=== PATIENT | female | born 1960 | race Asian ===

== ENCOUNTER → 2020-05-21 13:40 | Outpatient (BNVA) | payer OTHER, SELFPAY | PROVIDERS: PCP Internal Medicine; Referring Provider Internal Medicine; Visit Provider Nurse Practitioner Family | DX: Z76.89 Persons encountering health services in other specified circumstances (principal) ==

== ENCOUNTER 2020-06-20 07:33 | Outpatient (REF) | payer OTHER, SELFPAY ==
--- NOTE | 2020-06-20 07:37 | MM_ITS ---
EXAMINATION: MM SCREENING DIGITAL BREAST TOMOSYNTHESIS, BILATERAL CLINICAL INFORMATION: Screening. Asymptomatic. Benign right stereotactic biopsy 07/06/2019 (Benign breast parenchyma showing fibrocystic changes and adenosis with associated microcalcifications). The lifetime risk of breast cancer based on the Tyrer-Cuzick Model is 18%. COMPARISON: Mammography: 07/06/2019, 06/26/2019, 06/15/2019, 12/08/2011 TECHNIQUE: Digital breast tomosynthesis is performed in both the craniocaudal and mediolateral oblique views along with computer-aided detection (CAD). Synthesized 2D images are generated from the tomosynthesis. Additional right MLO view is provided. FINDINGS: The breasts are heterogeneously dense, which may obscure small masses (ACR BI-RADS breast composition Category c). There are no significant masses, abnormal calcifications, or other abnormalities. There is biopsy clip marker 12:00 right breast. Bilateral round calcifications are again seen in both breasts similar to prior studies with no interval change. MM/MM tomosynthesis screening BI IMPRESSION: No mammographic evidence of malignancy. ASSESSMENT: BI-RADS 2: Benign RECOMMENDATION: Routine annual mammography screening. This patient's information was entered into a reminder system with a target due date for their next mammogram.
== END 2020-06-20 07:34 | disposition home or self-care (01) ==
LOC: HO.MAMMO 07:33
PROVIDERS: PCP Internal Medicine; Visit Provider Internal Medicine
DX: Z12.31 Encounter for screening mammogram for malignant neoplasm of breast (principal)
CPT/HCPCS: 77063; 77067

== ENCOUNTER 2020-11-28 09:32 | Outpatient (REF) | payer OTHER, SELFPAY ==
--- NOTE | ~2020-11-28 | MM_ITS ---
EXAMINATION: BONE DENSITOMETRY CLINICAL INDICATION: Asymptomatic menopausal state. COMPARISON: This is the patient's baseline examination. TECHNIQUE: Using a [employer] DXA System (software version: 13.1) manufactured by [employer], dual-energy x-ray absorptiometry was performed of the lumbar spine and left hip. The images are of good technical quality. Summary results are attached. FINDINGS: AP SPINE L1-L4: BMD 1.301 g/cm2, Z-score 2.4, T-score 1.0, normal. LEFT FEMUR, NECK: BMD 0.801 g/cm2, Z-score -0.4, T-score -1.7, osteopenia. LEFT FEMUR, TOTAL: BMD 0.889 g/cm2, Z-score 0.1, T-score -0.9, normal. IDENTIFIED RISK FACTORS: Menopause. HISTORY OF FRACTURE: None listed. MEDICATIONS: Vitamin D. MM/XR DEXA axial skeleton IMPRESSION: 1. DIAGNOSIS: Osteopenia based on the lowest T-score value of -1.7 in the femoral neck applying World Health Organization criteria. 2. 10-YEAR FRACTURE RISK PREDICTION, FRAX: Major osteoporotic fracture (clinical spine, forearm, hip or shoulder) 4.9%. Hip fracture 0.5%. 3. Treatment Recommendations: NOF guidelines recommend consideration for treatment in postmenopausal women and men age 50 and older presenting with the following: -A hip or vertebral (clinical or morphometric) fracture. -T-score less than or equal to -2.5 at the femoral neck or spine after appropriate evaluation to exclude secondary causes. -Low bone mass at the hip or spine and a 10-year fracture probability by FRAX of greater than or equal to 3% for hip fracture or greater than or equal to 20% for major osteoporotic fracture based on the [place] adapted WHO algorithm. 4. Other Recommendations: All treatment decisions require clinical judgment and consideration of individual patient factors, including patient preferences, comorbidities, previous drug use, risk factors not captured in the FRAX model (e.g. frailty, falls, vitamin D deficiency, increased bone turnover, interval significant decline in bone density) and possible under or overestimation of fracture risk by FRAX. Additional medical evaluation for secondary cause of low bone mineral density may be appropriate. FUTURE SCAN RECOMMENDATION: People with diagnosed cases of osteoporosis or at high risk for fracture should have regular bone mineral density tests. For patients eligible for Medicare, routine testing is allowed once every 2 years. The testing frequency can be increased to one year for patients who have rapidly progressing disease, those who are receiving or discontinuing medical therapy to restore bone mass, or have additional risk factors.
== END 2020-11-28 09:33 | disposition home or self-care (01) ==
LOC: HO.MAMMO 09:32
PROVIDERS: PCP Internal Medicine; Visit Provider Internal Medicine
DX: Z13.820 Encounter for screening for osteoporosis (principal); Z78.0 Asymptomatic menopausal state
CPT/HCPCS: 77080

== ENCOUNTER 2020-12-15 17:20 | Outpatient (REF) | payer OTHER, SELFPAY ==
[2020-12-17 08:11] LABS: FIT Int Ctl YES; FIT1 NEGATIVE (NEGATIVE); FIT2 NEGATIVE (NEGATIVE)
== END 2020-12-15 17:21 | disposition home or self-care (01) ==
LOC: HO.LNP 17:20
PROVIDERS: Visit Provider Internal Medicine
DX: Z12.11 Encounter for screening for malignant neoplasm of colon (principal)
CPT/HCPCS: 82274

== ENCOUNTER 2020-12-16 17:17 | Outpatient (REF) | payer OTHER, SELFPAY | END 2020-12-16 17:18 | disposition home or self-care (01) | LOC: HO.LNP 17:17 | PROVIDERS: Visit Provider Internal Medicine | DX: Z13.89 Encounter for screening for other disorder (principal) ==

== ENCOUNTER 2021-02-07 10:35 | Outpatient (REF) | payer OTHER, SELFPAY ==
--- NOTE | ~2021-02-07 | XR_ITS ---
EXAMINATION: XR KNEE AP STANDING AND LATERAL WEIGHTBEARING VIEWS OF BOTH KNEES CLINICAL INFORMATION: Knee pain. COMPARISON: None TECHNIQUE: AP and lateral weightbearing views of both knees. FINDINGS: RIGHT KNEE: There is no evidence of acute fracture or dislocation of the right knee. No right knee effusion. Minimal spurring in the patellofemoral joint is present. There is osteopenia. LEFT KNEE: No acute fracture or dislocation is evident. No effusion is seen. Mild spurring superior aspect of the patellofemoral joint is seen. The joint spaces appear maintained. Osteopenia is present. The lateral view is not truly lateral giving a flattened appearance to the femoral heads. XR/XR knee standing BI IMPRESSION: Osteopenia without evidence of acute fracture or effusion of the knees.
[2021-02-07 14:32] LABS: Alanine Aminotransferase 16 U/L (0-31); Anion Gap 15 (12-20); Aspartate Amino Transferase 12 U/L (5-31); Blood Urea Nitrogen 11 mg/dL (9-16); Calcium 10.1 mg/dL (8.4-10.2); Carbon Dioxide 24 mmol/L (22-29); Chloride 103 mmol/L (96-108); Cholesterol 219 mg/dL; Estimated Glomerular Filt Rate > 60; Glucose Fasting 99 mg/dL (60-99); HDL Cholesterol 41 mg/dL; LDL Cholesterol Calculated 159 mg/dl; Sodium 138 mmol/L (135-145); Triglycerides 98 mg/dL
[2021-02-07 14:54] LABS: Vitamin D 25-OH Total 60.3 ng/mL (>30)
== END 2021-02-07 10:36 | disposition home or self-care (01) ==
LOC: HO.HMGCX 10:35
PROVIDERS: PCP Internal Medicine; Visit Provider Internal Medicine
DX: M25.561 Pain in right knee (principal); M25.562 Pain in left knee; E66.9 Obesity, unspecified; E78.5 Hyperlipidemia, unspecified; I10 Essential (primary) hypertension; N95.1 Menopausal and female climacteric states
CPT/HCPCS: 36415; 73565; 80048; 80061; 82306; 84450; 84460

== ENCOUNTER 2022-01-05 01:40 | Emergency (ER) | payer OTHER, SELFPAY ==
--- NOTE | ~2022-01-05 | XR_ITS ---
EXAMINATION: XR CHEST CLINICAL INFORMATION: Chest pain COMPARISON: None TECHNIQUE: Frontal view of the chest was obtained. FINDINGS: The lungs are clear with no focal consolidation. No evidence of pneumothorax, pulmonary edema, or pleural effusions. The cardiomediastinal silhouette is unremarkable. No acute osseous findings. XR/XR chest 1V IMPRESSION: No acute cardiopulmonary findings.
[2022-01-05 01:43] VITALS: BP 120/84; PULSE 69; O2SAT 98
[2022-01-05 02:06] VITALS: BP 161/83; PULSE 59; RESP 18; TEMP 37.3; O2SAT 99; BMI 22.6
[2022-01-05 02:09] LABS: MANUAL DIFF FLAG NO
[2022-01-05 02:14] LABS: Basophils Percent Auto 0.2 % (0-2); Eosinophils Percent Auto 0.4 % (0-4); Hematocrit 37.2 % (37.0-47.0); Hemoglobin 12.2 g/dl (12.0-16.0); Imm Gran Abs Auto 0.03 X10*3/uL (0.00-0.03); Imm Gran Pct Auto 0.3 % (0.0-0.4); Lymphocytes Absolute Auto 2.2 X10*3/uL (1.2-4.9); Lymphocytes Percent Auto 24.2 % (20-40); Mean Corpuscular HGB Conc 32.8 g/dl (31.0-35.0); Mean Corpuscular Hemoglobin 30.3 pg (27.0-33.0); Mean Corpuscular Volume 92.5 fL (80.0-98.0); Mean Platelet Volume 9.1 fL (9.4-12.3); Monocytes Absolute Auto 0.3 X10*3/uL (0.1-1.2); Monocytes Percent Auto 3.6 % (2-11); Neutrophils Absolute Auto 6.4 x10*3/uL (2.0-8.3); Neutrophils Percent Auto 71.3 % (45-73); Platelet Count 255 X10*3/uL (160-400); Red Blood Count 4.02 X10*6/uL (4.20-5.50); Red Cell Distribution Width 13.8 % (11.0-16.0)
[2022-01-05 02:31] LABS: Alanine Aminotransferase 15 U/L (0-31); Albumin Level 4.4 g/dL (3.5-5.0); Alkaline Phosphatase 76 U/L (39-117); Anion Gap 12 (12-20); Aspartate Amino Transferase 13 U/L (5-31); Bilirubin Direct 0.2 mg/dL (0.0-0.5); Bilirubin Total 0.4 mg/dL (0.0-1.0); Blood Urea Nitrogen 10 mg/dL (9-16); Calcium 9.3 mg/dL (8.4-10.2); Carbon Dioxide 23 mmol/L (22-29); Chloride 106 mmol/L (96-108); Creatinine Clr Calc Pharmacy 63.1; Estimated Glomerular Filt Rate > 60; Glucose Random 109 mg/dL (60-115); Lipase 15 U/L (8-78); Potassium 3.8 mmol/L (3.3-5.1); Sodium 137 mmol/L (135-145)
[2022-01-05 02:41] LABS: COVID-19 Test Negative (Negative)
[2022-01-05 06:29] LABS: Appearance Urine HAZY; Color Urine YELLOW; Glucose Urine UA NEG (NEG); Leukocyte Esterase Urine 2+ (NEG); Nitrite Urine POS (NEG); Specific Gravity - Urine 1.025 (1.005-1.025); UACC Culture Trigger YES; Urine Blood TRACE (NEG); Urine Ketones 5 MG/DL (NEG); Urine Protein NEG (NEG-TRACE)
[2022-01-05 06:36] LABS: Bacteria Urine 4+ /LPF; Squamous Epithelial Cell Urine 2+ /LPF
[2022-01-05 06:37] LABS: Mucus Urine 1+ /LPF
[2022-01-05 06:55] VITALS: BP 157/72; PULSE 69; RESP 16; TEMP 37.2; O2SAT 99
--- NOTE | 2022-01-05 07:17 | ED_ITS ---
HPI - Abdominal Pain General Chief Complaint: Abdominal Pain Stated Complaint: N/V/Chills,Rt flank pain Time Seen by Provider: 01/05/22 06:09 Source: patient Mode of arrival: ambulatory History of Present Illness HPI narrative: 61-year-old female who presents with right flank pain and urinary frequency with associated nausea and chills but no vomiting or measured temperatures at home. Patient states that she suffers from diarrhea and states that the pain has gone away for now but is very sharp in nature. Related Data Previous Rx's Medication Instructions Recorded lisinopril 10 1 tab PO DAILY #90 tabs 09/04/21 mg-hydrochlorothiazide 12.5 mg tablet ciprofloxacin HCl 500 mg tablet 250 mg PO Q12H 5 days #5 tabs 01/05/22 ondansetron 4 mg disintegrating 4 mg PO Q8H PRN nausea and 01/05/22 tablet vomiting #6 tabs Allergies Allergy/AdvReac Type Severity Reaction Status Date / Time acetaminophen [Tylenol] AdvReac Unknown stomach Verified 01/05/22 02:08 upset NSAIDS (Non-Steroidal AdvReac Unknown nausea and Verified 01/05/22 02:08 Anti-Inflamma vomiting Review of Systems Review of Systems Pertinent positives and negatives as stated in HPI 10 point review of systems is otherwise negative PMFSH Past Medical History Source: nursing notes reviewed Medical History Breast cancer screening by mammogram Difficulty sleeping Dyslipidemia Essential hypertension Glaucoma Obesity Papanicolaou smear declined Post menopausal syndrome Surgical History History of knee surgery History of root canal procedure Family History Family History Father Unknown family medical history Mother No problems noted. Social History Social History Alcohol intake: never Substance Use Type: Marijuana Advance Directives: No Advance Directives Information Provided: Yes Physical Exam ED Vital Signs: Vital Signs - 24 hr 01/05/22 02:06 01/05/22 06:55 Temperature 99.1 F 99.0 F Pulse Rate 59 69 Respiratory Rate 18 16 Blood Pressure 161/83 H 157/72 H Pulse Oximetry 99 99 Oxygen Delivery Method Room Air Room Air BMI result Body Mass Index 22.6 VITAL SIGNS: Reviewed. GENERAL: Well developed, well nourished, in no acute distress. HEAD: Normocephalic/atraumatic EYES: PERRLA, EOMI EARS: Ext canals without abnormality OROPHARYNX: no oral lesions noted, posterior pharynx clear LUNGS: Normal breath sounds. No adventitious sounds or accessory muscle use. SpO2<99> CARDIOVASCULAR: Regular rate and rhythm without noted murmurs ABDOMEN: Soft, no right upper quadrant / epigastric pain, non-distended with bowel sounds, right CVA tenderness. NEUROLOGIC: Alert and oriented x 4. Strength and sensation to light touch were grossly intact x 4. Course Course Course Narrative: 61-year-old female with history and clinical presentation after review of all investigations most consistent with clinical diagnosis of pyelonephritis. Patient will receive initial antibiotics as well as antiemetic here in the emergency room and then be discharged with remaining course. All results and plan have been discussed with her at bedside. MDM - Abdominal Pain Lab Data Result diagrams: 01/05/22 02:01 01/05/22 02:01 Labs: Lab Results 01/05/22 01/05/22 01/05/22 Range/Units 02:01 02:01 02:01 WBC 9.0 (4.8-10.8) X10*3/uL RBC 4.02 L (4.20-5.50) X10*6/uL Hgb 12.2 (12.0-16.0) g/dl Hct 37.2 (37.0-47.0) % MCV 92.5 (80.0-98.0) fL MCH 30.3 (27.0-33.0) pg MCHC 32.8 (31.0-35.0) g/dl RDW 13.8 (11.0-16.0) % Plt Count 255 (160-400) X10*3/uL MPV 9.1 L (9.4-12.3) fL Immature Gran % (Auto) 0.3 (0.0-0.4) % Neut % (Auto) 71.3 (45-73) % Lymph % (Auto) 24.2 (20-40) % [place] % (Auto) 3.6 (2-11) % Eos % (Auto) 0.4 (0-4) % Baso % (Auto) 0.2 (0-2) % Lymph # (Auto) 2.2 (1.2-4.9) X10*3/uL [place] # (Auto) 0.3 (0.1-1.2) X10*3/uL Eos # (Auto) 0.0 (0.0-0.4) X10*3/uL Baso # (Auto) 0.0 (0.0-0.2) X10*3/uL Abs Immat Gran (auto) 0.03 (0.00-0.03) X10*3/uL Absolute Neuts (auto) 6.4 (2.0-8.3) x10*3/uL Absolute Nucleated RBC 0.000 (0.0-0.012) X10*3/uL Nucleated RBC % (auto) 0.0 (0.0-0.2) /100WBC Sodium 137 (135-145) mmol/L Potassium 3.8 (3.3-5.1) mmol/L Chloride 106 (96-108) mmol/L Carbon Dioxide 23 (22-29) mmol/L Anion Gap 12 (12-20) BUN 10 (9-16) mg/dL Creatinine 0.63 (0.5-1.4) mg/dL Estim Creat Clear Calc 63.1 Estimated GFR > 60 Random Glucose 109 (60-115) mg/dL Calcium 9.3 D (8.4-10.2) mg/dL Total Bilirubin 0.4 (0.0-1.0) mg/dL Direct Bilirubin 0.2 (0.0-0.5) mg/dL AST 13 (5-31) U/L ALT 15 (0-31) U/L Alkaline Phosphatase 76 (39-117) U/L Total Protein 8.0 (6.5-8.0) g/dL Albumin 4.4 (3.5-5.0) g/dL Lipase 15 (8-78) U/L Urine Color Urine Appearance Urine pH (5.0-8.0) Ur Specific [place] (1.005-1.025) Urine Protein (NEG-TRACE) MG/DL Urine Glucose (UA) (NEG) MG/DL Urine Ketones (NEG) MG/DL Urine Blood (NEG) Urine Nitrite (NEG) Ur Leukocyte Esterase (NEG) Urine RBC (0) /HPF Urine WBC (0-4) /HPF Ur Squamous Epith Cells /LPF Urine Bacteria /LPF Urine Mucus /LPF COVID-19 (CARL) Negative (Negative) COVID-19 Clin Com See Note 01/05/22 Range/Units 06:05 WBC (4.8-10.8) X10*3/uL RBC (4.20-5.50) X10*6/uL Hgb (12.0-16.0) g/dl Hct (37.0-47.0) % MCV (80.0-98.0) fL MCH (27.0-33.0) pg MCHC (31.0-35.0) g/dl RDW (11.0-16.0) % Plt Count (160-400) X10*3/uL MPV (9.4-12.3) fL Immature Gran % (Auto) (0.0-0.4) % Neut % (Auto) (45-73) % Lymph % (Auto) (20-40) % [place] % (Auto) (2-11) % Eos % (Auto) (0-4) % Baso % (Auto) (0-2) % Lymph # (Auto) (1.2-4.9) X10*3/uL [place] # (Auto) (0.1-1.2) X10*3/uL Eos # (Auto) (0.0-0.4) X10*3/uL Baso # (Auto) (0.0-0.2) X10*3/uL Abs Immat Gran (auto) (0.00-0.03) X10*3/uL Absolute Neuts (auto) (2.0-8.3) x10*3/uL Absolute Nucleated RBC (0.0-0.012) X10*3/uL Nucleated RBC % (auto) (0.0-0.2) /100WBC Sodium (135-145) mmol/L Potassium (3.3-5.1) mmol/L Chloride (96-108) mmol/L Carbon Dioxide (22-29) mmol/L Anion Gap (12-20) BUN (9-16) mg/dL Creatinine (0.5-1.4) mg/dL Estim Creat Clear Calc Estimated GFR Random Glucose (60-115) mg/dL Calcium (8.4-10.2) mg/dL Total Bilirubin (0.0-1.0) mg/dL Direct Bilirubin (0.0-0.5) mg/dL AST (5-31) U/L ALT (0-31) U/L Alkaline Phosphatase (39-117) U/L Total Protein (6.5-8.0) g/dL Albumin (3.5-5.0) g/dL Lipase (8-78) U/L Urine Color YELLOW Urine Appearance HAZY Urine pH 6.0 (5.0-8.0) Ur Specific [place] 1.025 (1.005-1.025) Urine Protein NEG (NEG-TRACE) MG/DL Urine Glucose (UA) NEG (NEG) MG/DL Urine Ketones 5 (NEG) MG/DL Urine Blood TRACE (NEG) Urine Nitrite POS H (NEG) Ur Leukocyte Esterase 2+ H (NEG) Urine RBC 1-4 (0) /HPF Urine WBC 15-29 H (0-4) /HPF Ur Squamous Epith Cells 2+ /LPF Urine Bacteria 4+ /LPF Urine Mucus 1+ /LPF COVID-19 (CARL) (Negative) COVID-19 Clin Com Discharge Plan Discharge Clinical Impression: Pyelonephritis Patient Disposition: Home, Self-Care Instructions: Kidney Infection (ED) Additional Instructions: 1. Drink plenty of water. 2. Complete the entire course of antibiotics. Return to the ER for worsening symptoms. Prescriptions: New ciprofloxacin HCl 500 mg tablet 250 mg PO Q12H 5 Days Qty: 5 0RF ondansetron 4 mg tablet,disintegrating 4 mg PO Q8H PRN (Reason: nausea and vomiting) Qty: 6 0RF No Action lisinopril-hydrochlorothiazide 10-12.5 mg tablet 1 tab PO DAILY Qty: 90 0RF Rx Instructions: call for PCP appt for more refills
[2022-01-05] MEDS: Ondansetron ODT 4 MG TAB.RAPDIS TRANSLINGU (08:42)
[2022-01-05] MEDS: levoFLOXacin 750 MG TABLET PO (08:42)
== END 2022-01-05 09:00 | disposition home or self-care (01) ==
PROVIDERS: Emergency Provider Student in an Organized Health Care Education/Training Program
DX: N10 Acute pyelonephritis (principal); R35.0 Frequency of micturition; R07.89 Other chest pain; Z20.822 Contact with and (suspected) exposure to COVID-19; Z79.899 Other long term (current) drug therapy
CPT/HCPCS: 36415; 71045; 80048; 80076; 81001; 83690; 85025; 87086; 87635; 99283; 99284

== ENCOUNTER 2022-02-17 07:27 | Outpatient (REF) | payer OTHER, SELFPAY ==
[2022-02-17 12:16] LABS: Anion Gap 12 (12-20); Blood Urea Nitrogen 14 mg/dL (9-16); Calcium 9.5 mg/dL (8.4-10.2); Carbon Dioxide 25 mmol/L (22-29); Chloride 105 mmol/L (96-108); Cholesterol 178 mg/dL; Estimated Glomerular Filt Rate > 60; Glucose Fasting 91 mg/dL (60-99); HDL Cholesterol 56 mg/dL; LDL Cholesterol Calculated 109 mg/dl; Potassium 4.2 mmol/L (3.3-5.1); Sodium 138 mmol/L (135-145); Triglycerides 66 mg/dL
[2022-02-17 12:26] LABS: Vitamin D 25-OH Total 36.8 ng/mL (>30)
[2022-02-17 12:44] LABS: Folate 9.2 ng/mL (> or = 4.0); Vitamin B12 304 pg/mL (200-900)
== END 2022-02-17 07:28 | disposition home or self-care (01) ==
LOC: HO.HMGCLDS 07:27
PROVIDERS: PCP Internal Medicine; Visit Provider Internal Medicine
DX: E66.9 Obesity, unspecified (principal); E78.5 Hyperlipidemia, unspecified; N95.1 Menopausal and female climacteric states; I10 Essential (primary) hypertension
CPT/HCPCS: 36415; 80048; 80061; 82306; 82607; 82746; 84443

== ENCOUNTER 2023-04-07 12:59 | Outpatient (AMB) | payer OTHER, SELFPAY ==
[2023-04-07 13:33] VITALS: BP 160/100; PULSE 73; O2SAT 99; BMI 27.6
--- NOTE | 2023-04-07 13:33 | A.OFFPC_ITS ---
Vital Signs 04/07/23 13:33 04/07/23 13:40 Height 4 ft 11 in Weight 136 lb 8 oz BMI 27.6 BP 160/100 H 140/85 H Blood Pressure Location Lt brachial Lt brachial Position Sitting Sitting Pulse 73 Pulse Source Pulse Oximeter Pulse Oximetry (%) 99 Oxygen Delivery Method Room Air Intake Visit Reasons: Follow-up hypertension Intake Note: pt is following up for HTN pt wants flu vaccine Allergies acetaminophen [Tylenol] Adverse Reaction (Unknown, Verified 04/07/23 13:53) stomach upset NSAIDS (Non-Steroidal Anti-Inflamma Adverse Reaction (Unknown, Verified 04/07/23 14:00) nausea and vomiting Medication List - Last Reconciled 04/07/23 by Dianne Vang MD amlodipine 5 mg PO DAILY Tobacco use date assessed: 04/07/23 Fall risk assessment: No Falls in past year Last assessed Fall Risk: 04/07/23 Dental Screening Dental Screen Date: 04/07/23 Did you have a dental visit in the last 12 months?: No Did you have a dental problem in the last 6 months where you did not have access to dental care?: No Was dental information given to patient?: No HPI HPI Comments History of Present Illness Details 63-year-old lady with hypertension, here today for follow-up. She takes amlodipine 5 mg once a day in a.m., already took her dose this morning prior to coming to the office. Blood pressure today is elevated at 1 60/100. Patient denies any headache, no shortness of breath, no lightheadedness, no chest pain reported. [facility], LAT[facility] Medical History Heartburn Breast cancer screening by mammogram Difficulty sleeping Papanicolaou smear declined Obesity Post menopausal syndrome Essential hypertension Glaucoma Dyslipidemia Surgical History History of knee surgery History of root canal procedure Family History Father Unknown family medical history Mother No problems noted. Social History Housing: Condominium Alcohol intake: never Patient Tobacco Use Status: Never used Tobacco e-Cigarette/Vaping Use: Never Used Second Hand Smoke Exposure: No Substance Use Type: Marijuana service: No Current occupational status: retired Cognitive needs: No Hearing needs: No Vision needs: No Questionnaire PHQ-9 Over the last 2 weeks, how often have you been bothered by any of the following problems? Depression Screening Interpretation: Negative Depression Screening Done: Yes Source: Developed by Moon Melendez Kurt Kroenke and colleagues, with an educational bibiana from [employer]. Thrive Questionnaire Date Thrive assessed: 02/13/22 AVELINA-7 AMB Questionnaire AVELINA-7 Date AVELINA - 7 assessed: 02/13/22 Source: Developed by Drs. Sammy Mckeon, Moon Machado, Mario Ramon and colleagues, with an educational bibiana from Rep. Review of Systems Const Reports as per HPI and Denies headache(s) Eyes Reports no additional complaints ENT Reports no additional complaints, Denies dizziness and Denies headache(s) Card Denies dyspnea Resp Denies cough and Denies dyspnea GI Denies abdominal pain, Denies melena, Denies bloating, Denies change in bowel habits and Denies heartburn Musc Reports no additional complaints Neuro Denies dizziness, Denies headache(s), Denies lack of coordination, Denies focal weakness and Denies Sensory deficit (Neuro) Physical exam (Primary Care) Vital Signs: Last Vital Signs Pulse 73 04/07/23 13:33 BP 140/85 H 04/07/23 13:40 Pulse Ox 99 04/07/23 13:33 Oxygen Delivery Method Room Air 04/07/23 13:33 BMI result Body Mass Index 27.6 Tobacco/Smoking Status: Tobacco use Status Tobacco use date assessed 04/07/23 04/07/23 13:41 Patient Tobacco Use Status Never used Tobacco 04/07/23 14:11 e-Cigarette/Vaping Use Never Used 04/07/23 14:03 Depression Screening Interpretation: Negative Thrive Assessment: Date of Thrive Assessment Date Thrive assessed 02/13/22 04/07/23 13:34 Const Other: Alert oriented x3, no acute distress noted ambulatory normal gait General: comfortable, no acute distress, alert, awake and Physically active Nutritional Appearance: obese Orientation/consciousness: patient oriented x3 HENMT Head: Yes normocephalic Ears: external ears normal, TM's normal bilaterally and EAC's normal General nose exam: Normal external nose present and No nasal discharge present Face and sinus: Yes sinuses nontender and Yes face symmetric Mouth: Normal oral and palatal mucosa present, oropharynx normal and moist mucous membranes Neck Other: Supple no lymphadenopathy, thyroid gland nonpalpable Neck: Yes full ROM, Yes no lymphadenopathy and Yes supple Resp Effort & Inspection: normal respiratory effort and able to speak in complete sentences Auscultation: clear to auscultation bilaterally Cardio Other: S1-S2 present regular rate and rhythm Rate: regular rate Rhythm: regular rhythm Heart sounds: S1 normal heart sound present and S2 normal heart sound present GI Other: Obese, soft, nontender, no mass palpated Auscultation: normal bowel sounds Amniotic Fluid: fluid present Neuro General: patient oriented x3, gait normal, moves all extremities, no focal motor deficits and CN's II-XI intact bilaterally Sensory Exam: No Sensory deficit (Neuro) Extrem General: Yes full ROM, Yes no joint enlargement, Yes no pedal edema and Yes normal gait Office Procedures Flu Questionnaire Does the patient have a severe egg allergy?: No Does the patient have severe life threatening allergies?: No Does the patient have a fever or illness today?: No Has the patient ever had Guillain-Shiloh Syndrome?: No Has the patient ever had any past reaction to a flu shot?: No Immunizations flu vacc [id number] 6mos up(PF) 60 mcg(15 mcgx4)/0.5 mL IM syringe Performing Provider: Dianne Vang MD Performing Location: [facility] Administered by: Jami Messina CMA on 04/07/23 14:17 Dose Route Admin Location Dispensed Lot Number Expiration Date NDC Manager [employer] 0.5 mL IM Left Deltoid 0.5 mL [id number] 12/19/23 91710-950-81 [employer] VIS Given Date VIS Provided VIS Publication Date 04/07/23 Single Vaccine 21 Eligibility Eligibility Date Funding Source Not [facility] Eligible 04/07/23 Private Assessment and Plan Assessment & Plan (1) Essential hypertension: Code(s): I10 - Essential (primary) hypertension Plan: Blood pressure not at goal of less than 130/80. Increased amlodipine to 10 mg daily, continue with following a low-cholesterol diet and getting regular exercise. Will schedule appointment for him to be seen and for blood pressure check with the nurse navigator next week and for guidance with regards her diet. Orders: Orders Influenza [id number] Immunization 04/07/23 Z23 - Encounter for immunization Coding Level of Care Code Est Pt Level 3 (38675) Diagnoses Essential hypertension I10
[2023-04-07 13:40] VITALS: BP 140/85
== END 2023-04-07 14:30 | disposition home or self-care (01) ==
PROVIDERS: PCP Internal Medicine; Visit Provider Internal Medicine
DX: Z23 Encounter for immunization (principal)
CPT/HCPCS: 90471; 90686; 99213

== ENCOUNTER 2023-06-11 11:38 | Outpatient (REF) | payer OTHER, SELFPAY ==
[2023-06-11 13:22] LABS: MANUAL DIFF FLAG NO
[2023-06-11 13:33] LABS: Basophils Percent Auto 0.5 % (0-2); Eosinophils Absolute Auto 0.1 X10*3/uL (0.0-0.4); Eosinophils Percent Auto 0.7 % (0-4); Hematocrit 41.4 % (37.0-47.0); Hemoglobin 13.5 g/dl (12.0-16.0); Imm Gran Abs Auto 0.03 X10*3/uL (0.00-0.03); Imm Gran Pct Auto 0.4 % (0.0-0.4); Lymphocytes Absolute Auto 3.1 X10*3/uL (1.2-4.9); Mean Corpuscular HGB Conc 32.6 g/dl (31.0-35.0); Mean Corpuscular Hemoglobin 30.1 pg (27.0-33.0); Mean Corpuscular Volume 92.2 fL (80.0-98.0); Mean Platelet Volume 9.6 fL (9.4-12.3); Monocytes Absolute Auto 0.4 X10*3/uL (0.1-1.2); Monocytes Percent Auto 5.4 % (2-11); Neutrophils Absolute Auto 3.9 x10*3/uL (2.0-8.3); Platelet Count 326 X10*3/uL (160-400); Red Blood Count 4.49 X10*6/uL (4.20-5.50); Red Cell Distribution Width 13.3 % (11.0-16.0); White Blood Count 7.4 X10*3/uL (4.8-10.8)
[2023-06-11 14:20] LABS: Alanine Aminotransferase 14 U/L (0-31); Anion Gap 15 (12-20); Aspartate Amino Transferase 14 U/L (5-31); Blood Urea Nitrogen 15 mg/dL (9-16); Calcium 9.8 mg/dL (8.4-10.2); Carbon Dioxide 22 mmol/L (22-29); Chloride 103 mmol/L (96-108); Cholesterol 194 mg/dL (<200); Estimated Glomerular Filt Rate > 60; Glucose Fasting 101 mg/dL (60-99); HDL Cholesterol 48 mg/dL (>40); LDL Cholesterol Calculated 129 mg/dL (<100); Potassium 3.6 mmol/L (3.3-5.1); Sodium 136 mmol/L (135-145); Triglycerides 88 mg/dL (<150)
[2023-06-11 14:38] LABS: Vitamin D 25-OH Total 32.6 ng/mL (>30)
== END 2023-06-11 11:39 | disposition home or self-care (01) ==
LOC: HO.HMGCLDS 11:38
PROVIDERS: PCP Internal Medicine; Visit Provider Internal Medicine
DX: N95.1 Menopausal and female climacteric states (principal); I10 Essential (primary) hypertension; E66.9 Obesity, unspecified
CPT/HCPCS: 36415; 80048; 80061; 82306; 84450; 84460; 85025

== ENCOUNTER 2023-11-01 12:08 | Outpatient (AMB) | payer OTHER, SELFPAY ==
[2023-11-01 12:37] VITALS: BP 118/66; PULSE 74; O2SAT 99; BMI 26.5
--- NOTE | 2023-11-01 12:37 | MHC.PC.OV ---
Vital Signs 11/01/23 12:37 Height 4 ft 11 in Weight 131 lb BMI 26.5 BP 118/66 Blood Pressure Location Lt brachial Position Sitting Pulse 74 Pulse Source Pulse Oximeter Pulse Oximetry (%) 99 Oxygen Delivery Method Room Air Intake Visit Reasons: Annual PE Intake Note: Pt is here today for PE. Pt states that she has not seen her [employer]ING [employer]OB [employer] for several years. Allergies acetaminophen [Tylenol] Adverse Reaction (Unknown, Verified 11/01/23 12:50) stomach upset NSAIDS (Non-Steroidal Anti-Inflamma Adverse Reaction (Unknown, Verified 11/01/23 12:50) nausea and vomiting Medication List - Last Reconciled 11/01/23 by Dianne Vang MD amlodipine 10 mg PO DAILY lisinopril-hydrochlorothiazide 10-12.5 mg 1 tab PO DAILY Tobacco use date assessed: 11/01/23 Fall risk assessment: No Falls in past year Last assessed Fall Risk: 11/01/23 Dental Screening Dental Screen Date: 11/01/23 Did you have a dental visit in the last 12 months?: Yes Did you have a dental problem in the last 6 months where you did not have access to dental care?: No Was dental information given to patient?: Patient has dentist HPI Annual PE HPI Details 63-year-old lady with hypertension, currently stable and controlled on amlodipine and lisinopril-HCTZ, here today for physical exam. She is overdue for her screening mammogram, bone density and cervical cancer screening. Last bone density scan done in 2019 showed presence of beginning osteopenia in her left femoral neck Has never had a colon cancer screening done. Has had COVID vaccines, but has not yet had the latest booster, up-to-date with her flu shot, in due for a Tdap and shingles vaccine, but does not want to get the vaccine [facility] Medical History (Updated 11/01/23 @ 13:17 by Dianne Vang MD) Osteopenia of left femoral neck Heartburn Breast cancer screening by mammogram Difficulty sleeping Obesity Post menopausal syndrome Essential hypertension Glaucoma Dyslipidemia Surgical History History of knee surgery History of root canal procedure Family History Father Unknown family medical history Mother No problems noted. Social History Housing: Condominium Alcohol intake: never Patient Tobacco Use Status: Never used Tobacco e-Cigarette/Vaping Use: Never Used Second Hand Smoke Exposure: No Substance Use Type: Marijuana service: No Current occupational status: retired Cognitive needs: No Hearing needs: No Vision needs: No Questionnaire PHQ-9 Over the last 2 weeks, how often have you been bothered by any of the following problems? 1. Little interest or pleasure in doing things: not at all 2. Feeling down, depressed, or hopeless: not at all 3. Trouble falling or staying asleep, or sleeping too much: not at all 4. Feeling tired or having little energy: not at all 5. Poor appetite or overeating: not at all 6. Feeling bad about yourself - or that you are a failure or have let yourself or your family down: not at all 7. Trouble concentrating on things, such as reading the newspaper or watching television: several days 8. Moving or speaking so slowly that other people could have noticed. Or the opposite - being so fidgety or restless that you have been moving around a lot more than usual: not at all 9. Thoughts that you would be better off or of hurting yourself in some way: not at all Total score: 1 Depression Screening Interpretation: Negative Depression Screening Done: Yes 56720 - PHQ-9 Billing: Yes Source: Developed by Drs. Sammy Mckeon, Moon Machado, Mario Ramon and colleagues, with an educational bibiana from [employer]. Thrive Questionnaire Date Thrive assessed: 11/01/23 I am a: Patient What is your living situation today?: I have a steady place to live Within the past 12 months, did the food you bought not last and you didn't have the money to get more?: Never true Within the past 12 months, did you worry whether your food would run out before you got money to buy more?: Never true Do you have trouble paying for medicines?: No Do you have trouble getting transportation to medical appointments?: No Do you have trouble paying your heating and electricity bill?: No Do you have trouble taking care of your child, family member or friend?: No Do you have trouble with day-to-day activities such as bathing, preparing meals, shopping, managing finances, etc.?: No Are you currently unemployed and looking for a job?: Yes Are you interested in more education?: Yes Please select the resources that you would like help with: Job search/training and Education THRIVE Score: 0 AUDIT C Alcohol Use Questionnaire (AUDIT-C) 1. How often do you have a drink containing alcohol?: Never 3. How often do you have six or more drinks on one occasion?: Never Total Score: 0 AVELINA-7 AMB Questionnaire AVELINA-7 Date AVELINA - 7 assessed: 11/01/23 Feeling nervous, anxious, or on edge: 0 = Not at all Not being able to stop or control worryin = Not at all Worrying too much about different things: 0 = Not at all Trouble relaxin = Several days Being so restless that it is hard to sit still: 0 = Not at all Becoming easily annoyed or irritable: 1 = Several days Feeling afraid as if something awful might happen: 0 = Not at all Total AVELINA-7 score (0-4 normal; 5-9 mild; 10-14 moderate; 15-21 severe): 2 Source: Developed by Drs. Sammy Mckeon, Moon Machado, Mario Ramon and colleagues, with an educational bibiana from [employer]. AVELINA-7 Assessment Billing AVELINA-7 Assessment Tool: AVELINA-7 Assessment 43624 Review of Systems Const Denies body aches, Denies fatigue and Denies malaise Eyes Reports requires corrective lenses (For reading) ENT Reports no additional complaints Card Denies chest pain, Denies irregular heart rhythm, Denies lightheadedness and Denies dyspnea Resp Denies cough and Denies dyspnea GI Denies abdominal pain, Denies melena, Denies bloating, Denies change in bowel habits and Denies heartburn Reports no additional complaints Musc Reports no additional complaints Skin/Breast Denies lesions and Denies rash Neuro Denies Sensory deficit (Neuro) Psych Reports no additional complaints Endo Denies fatigue Harsha/Lymph Reports no additional complaints Aller/Immun Reports no additional complaints Physical exam (Primary Care) Vital Signs: Last Vital Signs Pulse 74 11/01/23 12:37 BP 118/66 11/01/23 12:37 Pulse Ox 99 11/01/23 12:37 Oxygen Delivery Method Room Air 11/01/23 12:37 BMI result Body Mass Index 26.5 Tobacco/Smoking Status: Tobacco use Status Tobacco use date assessed 11/01/23 11/01/23 12:42 Patient Tobacco Use Status Never used Tobacco 11/01/23 12:42 e-Cigarette/Vaping Use Never Used 11/01/23 12:42 PHQ-9: PHQ-9 Score PHQ-9: Total score 6 11/01/23 12:46 Depression Screening Interpretation: Negative Thrive Assessment: Date of Thrive Assessment Date Thrive assessed 11/01/23 11/01/23 12:46 Advance Care Planning discussion: Completed/Scanned Date of discussion: 11/01/23 Who was present: Patient Forms completed: Health Care Proxy Time spent: 16-45 minutes Actual minutes spent: 16 Const Other: Alert oriented x3, no acute distress noted ambulatory normal gait Nutritional Appearance: overweight HENMT Head: Yes normocephalic Ears: external ears normal, TM's normal bilaterally and EAC's normal General nose exam: Normal external nose present Face and sinus: Yes face symmetric Mouth: Normal oral and palatal mucosa present, oropharynx normal and moist mucous membranes Eyes General: appearance normal, both eyes and all related structures Neck Other: Supple no lymphadenopathy, thyroid gland nonpalpable Chest Chest palpation & inspection: normal inspection of the chest and normal palpation of entire chest wall Breast/axilla inspection: normal inspection of the breasts Breast/axilla palpation: normal palpation of the breasts Resp Effort & Inspection: normal respiratory effort and able to speak in complete sentences Auscultation: clear to auscultation bilaterally Cardio Rate: regular rate Rhythm: regular rhythm Heart sounds: S1 normal heart sound present and S2 normal heart sound present GI Other: Obese, soft, nontender, no mass palpated Auscultation: normal bowel sounds General: Yes no CVA tenderness Back/Spine/Pelvis Back: no CVA tenderness and No back tenderness Skin General skin exam: no rashes or lesions noted Neuro General: gait normal, moves all extremities, no focal motor deficits and CN's II-XI intact bilaterally Sensory Exam: No Sensory deficit (Neuro) Extrem General: Yes full ROM, Yes no joint enlargement and Yes normal gait Psych Appearance: grossly normal and well kempt Mental Status: mental status grossly normal Speech and movement: Normal speech and movement present Affect: normal affect Attitude: cooperative Thought process: Normal thought process present Thought content: Normal thought content present Assessment and Plan Assessment & Plan (1) Annual visit for general adult medical examination with abnormal findings: Code(s): Z00.01 - Encounter for general adult medical examination with abnormal findings Plan: Will check appropriate labs. Recommended dental visit every 6 months and regular eye exams, at least every 2 years. Take adequate calcium in diet and vitamin-D 3 at 2000 IU per cap once a day, in addition to weight-bearing exercises to help maintain good muscle tone and weight control. Instructed to do self-breast exam, and schedule her for yearly mammogram, and bone density screening. Does not want to get any vaccines. Declined colonoscopy but willing to do Cologuard testing, ordered (2) Breast cancer screening by mammogram: Code(s): Z12.31 - Encounter for screening mammogram for malignant neoplasm of breast Plan: Referred for screening mammogram (3) Essential hypertension: Code(s): I10 - Essential (primary) hypertension Plan: Blood pressure at goal of less than 130/80. Continue with amlodipine 10 mg daily and lisinopril HCTZ 10-12.5 mg daily.. Reinforced importance of following a low sodium diet, getting regular exercise, and lowering stress levels. (4) Screening for malignant neoplasm of cervix: Code(s): Z12.4 - Encounter for screening for malignant neoplasm of cervix Plan: Referred to [facility] for her routine Pap and pelvic exam. (5) Osteopenia of left femoral neck: Code(s): M85.852 - Other specified disorders of bone density and structure, left thigh Plan: , ordered a repeat bone density scan, reinforced importance of getting regular weight-bearing exercise, take adequate calcium from dietary sources and start taking vitamin-D 3 at least 2000 units daily (6) Glaucoma: Code(s): H40.9 - Unspecified glaucoma Plan: Advised to schedule follow-up appointment with Ophthalmology, check with her insurance which icing maker covered by her plan Orders: Orders MM tomosynthesis screening BI Today M85.852 - Other specified disorders of bone density and structure, left thigh, N95.1 - Menopausal and female climacteric states, Z12.31 - Encounter for screening mammogram for malignant neoplasm of breast Aspartate Amino Transferase Today I10 - Essential (primary) hypertension, Z00.01 - Encounter for general adult medical examination with abnormal findings, Z13.1 - Encounter for screening for diabetes mellitus, Z13.220 - Encounter for screening for lipoid disorders Lipid Panel Today I10 - Essential (primary) hypertension, Z00.01 - Encounter for general adult medical examination with abnormal findings, Z13.1 - Encounter for screening for diabetes mellitus, Z13.220 - Encounter for screening for lipoid disorders XR DEXA axial skeleton Today M85.852 - Other specified disorders of bone density and structure, left thigh, N95.1 - Menopausal and female climacteric states, Z12.31 - Encounter for screening mammogram for malignant neoplasm of breast Alanine Aminotransferase Today I10 - Essential (primary) hypertension, Z00.01 - Encounter for general adult medical examination with abnormal findings, Z13.1 - Encounter for screening for diabetes mellitus, Z13.220 - Encounter for screening for lipoid disorders Basic Metabolic Panel Fasting Today I10 - Essential (primary) hypertension, Z00.01 - Encounter for general adult medical examination with abnormal findings, Z13.1 - Encounter for screening for diabetes mellitus, Z13.220 - Encounter for screening for lipoid disorders Vitamin D 25-OH Total Today I10 - Essential (primary) hypertension, Z00.01 - Encounter for general adult medical examination with abnormal findings, Z13.1 - Encounter for screening for diabetes mellitus, Z13.220 - Encounter for screening for lipoid disorders Referrals Cologuard Test Z12.11 - Encounter for screening for malignant neoplasm of colon, Z12.12 - Encounter for screening for malignant neoplasm of rectum [employer] Referral Z12.4 - Encounter for screening for malignant neoplasm of cervix Coding Level of Care Code Est Pt Prev Care 40-64y(22028) Diagnoses Annual visit for general adult medical examination with abnormal findings Z00.01 Breast cancer screening by mammogram Z12.31 Essential hypertension I10 Screening for malignant neoplasm of cervix Z12.4 Osteopenia of left femoral neck M85.852 Glaucoma H40.9 Additional Codes Vital Signs *Quality* - Advance Care Planning discussion: Completed/Scanned ([id number]) Vital Signs *Quality* - Time spent: 16-45 minutes ([id number]) AVELINA-7 Assessment Billing - AVELINA-7 Assessment Tool: AVELINA-7 Assessment 71054 ([id number])
== END 2023-11-01 14:08 | disposition home or self-care (01) ==
PROVIDERS: PCP Internal Medicine; Visit Provider Internal Medicine
DX: Z00.00 Encounter for general adult medical examination without abnormal findings (principal); I10 Essential (primary) hypertension; Z12.31 Encounter for screening mammogram for malignant neoplasm of breast; M85.852 Other specified disorders of bone density and structure, left thigh; H40.9 Unspecified glaucoma
CPT/HCPCS: 1123F; 99396; 99497

== ENCOUNTER → 2023-11-26 08:00 | Outpatient (BNV) | payer OTHER, SELFPAY | PROVIDERS: PCP Internal Medicine; Visit Provider Radiology Diagnostic Radiology | DX: Z12.31 Encounter for screening mammogram for malignant neoplasm of breast (principal) | CPT/HCPCS: 77063; 77067 ==

== ENCOUNTER 2023-11-26 08:06 | Outpatient (REF) | payer OTHER, SELFPAY ==
--- NOTE | ~2023-11-26 | MM_ITS ---
EXAMINATION: MM SCREENING DIGITAL BREAST TOMOSYNTHESIS, BILATERAL CLINICAL INFORMATION: Screening. Asymptomatic. COMPARISON: Mammography: This study is compared with prior exams dating back to 2019. TECHNIQUE: Digital breast tomosynthesis is performed in both the craniocaudal and mediolateral oblique views along with computer-aided detection (CAD). Synthesized 2D images are generated from the tomosynthesis. FINDINGS: The breasts are heterogeneously dense, which may obscure small masses (ACR BI-RADS breast composition Category c). There are no significant masses, abnormal calcifications, or other abnormalities. There is a biopsy tissue marker in the superior aspect of the right breast. There are unchanged, benign calcifications in the upper outer quadrant of the right breast. MM/MM tomosynthesis screening BI IMPRESSION: No mammographic evidence of malignancy. ASSESSMENT: BI-RADS BI-RADS 2 - Benign Findings RECOMMENDATION: Routine annual mammography screening. 1 year F/U This examination should not preclude the clinical evaluation of a suspicious palpable abnormality. This patient's information was entered into a reminder system with a target due date for their next mammogram.
== END 2023-11-26 08:07 | disposition home or self-care (01) ==
LOC: HO.MAMMO 08:06
PROVIDERS: PCP Internal Medicine; Visit Provider Internal Medicine
DX: Z12.31 Encounter for screening mammogram for malignant neoplasm of breast (principal)
CPT/HCPCS: 77063; 77067

== ENCOUNTER 2023-12-09 09:10 | Outpatient (REF) | payer OTHER, SELFPAY ==
--- NOTE | ~2023-12-09 | MM_ITS ---
EXAMINATION: BONE DENSITOMETRY CLINICAL INDICATION: Other specified disorders of bone density and structure, left thigh. COMPARISON: Baseline BD dated 11/28/2020. TECHNIQUE: Using a [employer] DXA System (software version: 13.1) manufactured by [email or web address], dual-energy x-ray absorptiometry was performed of the lumbar spine and left hip. The images are of good technical quality. Summary results are attached. FINDINGS: LEFT FEMUR, NECK: Current: BMD 0.729 g/cm2, Z-score -0.7, T-score -2.2, osteopenia. Baseline: BMD 0.801 g/cm2. LEFT FEMUR, TOTAL: Current: BMD 0.755 g/cm2, Z-score -0.7, T-score -2.0, osteopenia, 15.1% decrease from baseline (<5% change is not significant). Baseline: BMD 0.889 g/cm2. AP SPINE L1-L4: Current: BMD 1.214 g/cm2, Z-score 2.0, T-score 0.3, normal, 6.7% decrease from baseline (<5% change is not significant). Baseline: BMD 1.301 g/cm2. IDENTIFIED RISK FACTORS: Menopause. HISTORY OF FRACTURE: None listed. MEDICATIONS: None listed. MM/XR DEXA axial skeleton IMPRESSION: 1. DIAGNOSIS: Osteopenia based on the lowest T-score value of -2.2 in the femoral neck applying World Health Organization criteria. 2. 10-YEAR FRACTURE RISK PREDICTION, FRAX: Major osteoporotic fracture (clinical spine, forearm, hip or shoulder) 6.5%. Hip fracture 1.1%. 3. Treatment Recommendations: NOF guidelines recommend consideration for treatment in postmenopausal women and men age 50 and older presenting with the following: -A hip or vertebral (clinical or morphometric) fracture. -T-score less than or equal to -2.5 at the femoral neck or spine after appropriate evaluation to exclude secondary causes. -Low bone mass at the hip or spine and a 10-year fracture probability by FRAX of greater than or equal to 3% for hip fracture or greater than or equal to 20% for major osteoporotic fracture based on the [place] adapted WHO algorithm. 4. Other Recommendations: All treatment decisions require clinical judgment and consideration of individual patient factors, including patient preferences, comorbidities, previous drug use, risk factors not captured in the FRAX model (e.g. frailty, falls, vitamin D deficiency, increased bone turnover, interval significant decline in bone density) and possible under or overestimation of fracture risk by FRAX. Additional medical evaluation for secondary cause of low bone mineral density may be appropriate. FUTURE SCAN RECOMMENDATION: People with diagnosed cases of osteoporosis or at high risk for fracture should have regular bone mineral density tests. For patients eligible for Medicare, routine testing is allowed once every 2 years. The testing frequency can be increased to one year for patients who have rapidly progressing disease, those who are receiving or discontinuing medical therapy to restore bone mass, or have additional risk factors.
== END 2023-12-09 09:11 | disposition home or self-care (01) ==
LOC: HO.MAMMO 09:10
PROVIDERS: PCP Internal Medicine; Visit Provider Internal Medicine
DX: Z13.820 Encounter for screening for osteoporosis (principal); Z78.0 Asymptomatic menopausal state; M85.852 Other specified disorders of bone density and structure, left thigh
CPT/HCPCS: 77080

== ENCOUNTER 2023-12-16 20:26 | Emergency (ER) | payer OTHER, SELFPAY ==
[2023-12-16 20:34] VITALS: BP 135/78; PULSE 73; RESP 16; TEMP 36; O2SAT 98; BMI 21.6
--- NOTE | 2023-12-16 20:34 | ED_ITS ---
HPI - General Adult General Chief complaint: Dental/Oral Stated complaint: jaw pain Related Data Previous Rx's ?Medication ?Instructions ?Recorded amlodipine 10 mg tablet 10 mg PO DAILY #90 tabs 07/21/23 lisinopril 10 1 tab PO DAILY #90 tabs 10/15/23 mg-hydrochlorothiazide 12.5 mg tablet Allergies Allergy/AdvReac Type Severity Reaction Status Date / Time acetaminophen [Tylenol] AdvReac Unknown stomach Verified 12/16/23 20:35 upset NSAIDS (Non-Steroidal AdvReac Unknown nausea and Verified 12/16/23 20:35 Anti-Inflamma vomiting PMFSH Past Medical History Medical History (Updated 12/18/23 @ 09:25 by TAISHA Mojica) Osteopenia of left femoral neck Heartburn Breast cancer screening by mammogram Difficulty sleeping Obesity Post menopausal syndrome Essential hypertension Glaucoma Dyslipidemia Surgical History History of knee surgery History of root canal procedure Family History Family History Father Unknown family medical history Mother No problems noted. Social History Social History Housing: Condominium Alcohol intake: never Patient Tobacco Use Status: Never used Tobacco e-Cigarette/Vaping Use: Never Used Second Hand Smoke Exposure: No Substance Use Type: Marijuana service: No Current occupational status: retired Cognitive needs: No Hearing needs: No Vision needs: No Physical Exam ED Vital Signs: BMI result Body Mass Index 21.6 Course Course Course Narrative: This is an RME: Additional HPI, ROS, PE not included below will be deferred to primary provider. RME assessment and note performed by: Amanda Solorzano PA-C This is a 13-bn[age]-female, with a hx of HTN, who presents to the ER with a complaint of right sided jaw pain x 2 hours ago. No CP/SOB. VSS Plan: Labs, EKG Reevaluation(s) Reevaluation #1: Patient left without completing treatment. Medical Decision Making Lab Data 12/16/23 20:51 12/16/23 20:51 Labs: Lab Results 12/16/23 Range/Units 20:51 WBC 8.4 (4.8-10.8) X10*3/uL RBC 3.92 L (4.20-5.50) X10*6/uL Hgb 12.3 (12.0-16.0) g/dl Hct 35.6 L (37.0-47.0) % MCV 90.8 (80.0-98.0) fL MCH 31.4 (27.0-33.0) pg MCHC 34.6 (31.0-35.0) g/dl RDW 13.5 (11.0-16.0) % Plt Count 276 (160-400) X10*3/uL MPV 8.2 L (9.4-12.3) fL Immature Gran % (Auto) 0.2 (0.0-0.4) % Neut % (Auto) 52.7 (45-73) % Lymph % (Auto) 41.0 H (20-40) % [place] % (Auto) 4.6 (2-11) % Eos % (Auto) 1.1 (0-4) % Baso % (Auto) 0.4 (0-2) % Lymph # (Auto) 3.4 (1.2-4.9) X10*3/uL [place] # (Auto) 0.4 (0.1-1.2) X10*3/uL Eos # (Auto) 0.1 (0.0-0.4) X10*3/uL Baso # (Auto) 0.0 (0.0-0.2) X10*3/uL Abs Immat Gran (auto) 0.02 (0.00-0.03) X10*3/uL Absolute Neuts (auto) 4.4 (2.0-8.3) x10*3/uL Absolute Nucleated RBC 0.000 (0.0-0.012) X10*3/uL Nucleated RBC % (auto) 0.0 (0.0-0.2) /100WBC Sodium 134 L (135-145) mmol/L Potassium 3.8 (3.3-5.1) mmol/L Chloride 102 (96-108) mmol/L Carbon Dioxide 24 (22-29) mmol/L Anion Gap 12 (12-20) BUN 21 H (9-16) mg/dL Creatinine 0.63 (0.5-1.4) mg/dL Estim Creat Clear Calc 81.2 Estimated GFR > 60 Random Glucose 108 (60-115) mg/dL Calcium 9.5 (8.4-10.2) mg/dL Total Bilirubin 0.2 (0.0-1.0) mg/dL Direct Bilirubin < 0.2 (0.0-0.5) mg/dL AST 12 (5-31) U/L ALT 13 (0-31) U/L Alkaline Phosphatase 64 (39-117) U/L Troponin I High Sens < 2.7 (<3.5-17.0) ng/L Total Protein 8.1 H (6.5-8.0) g/dL Albumin 4.4 (3.5-5.0) g/dL Discharge Plan Discharge Clinical Impression: Jaw pain Patient Disposition: Left W/O Completing Treatment Prescriptions: No Action amlodipine 10 mg tablet 10 mg PO DAILY Qty: 90 1RF Rx Instructions: Take at night with supper lisinopril-hydrochlorothiazide 10-12.5 mg tablet 1 tab PO DAILY Qty: 90 0RF Discharge Date/Time: 12/17/23 00:42
--- NOTE | 2023-12-16 20:37 | ECG_ITS ---
Test Reason : JAW PAIN Blood Pressure : / mmHG Vent. Rate : 062 BPM Atrial Rate : 062 BPM P-R Int : 152 ms QRS Dur : 072 ms QT Int : 388 ms P-R-T Axes : 028 057 038 degrees QTc Int : 393 ms Normal sinus rhythm Normal ECG No previous ECGs available Referred By: Amanda Solorzano Electronically Signed By:DIANA ESTEVEZ MD
[2023-12-16 20:57] LABS: MANUAL DIFF FLAG NO
[2023-12-16 21:03] LABS: Basophils Percent Auto 0.4 % (0-2); Eosinophils Absolute Auto 0.1 X10*3/uL (0.0-0.4); Eosinophils Percent Auto 1.1 % (0-4); Hematocrit 35.6 % (37.0-47.0); Hemoglobin 12.3 g/dl (12.0-16.0); Imm Gran Abs Auto 0.02 X10*3/uL (0.00-0.03); Imm Gran Pct Auto 0.2 % (0.0-0.4); Lymphocytes Absolute Auto 3.4 X10*3/uL (1.2-4.9); Mean Corpuscular HGB Conc 34.6 g/dl (31.0-35.0); Mean Corpuscular Hemoglobin 31.4 pg (27.0-33.0); Mean Corpuscular Volume 90.8 fL (80.0-98.0); Mean Platelet Volume 8.2 fL (9.4-12.3); Monocytes Absolute Auto 0.4 X10*3/uL (0.1-1.2); Monocytes Percent Auto 4.6 % (2-11); Neutrophils Absolute Auto 4.4 x10*3/uL (2.0-8.3); Neutrophils Percent Auto 52.7 % (45-73); Platelet Count 276 X10*3/uL (160-400); Red Blood Count 3.92 X10*6/uL (4.20-5.50); Red Cell Distribution Width 13.5 % (11.0-16.0); White Blood Count 8.4 X10*3/uL (4.8-10.8)
[2023-12-16 21:21] LABS: Alanine Aminotransferase 13 U/L (0-31); Albumin Level 4.4 g/dL (3.5-5.0); Alkaline Phosphatase 64 U/L (39-117); Anion Gap 12 (12-20); Aspartate Amino Transferase 12 U/L (5-31); Bilirubin Direct < 0.2 mg/dL (0.0-0.5); Bilirubin Total 0.2 mg/dL (0.0-1.0); Blood Urea Nitrogen 21 mg/dL (9-16); Calcium 9.5 mg/dL (8.4-10.2); Carbon Dioxide 24 mmol/L (22-29); Chloride 102 mmol/L (96-108); Creatinine Clr Calc Pharmacy 81.2; Estimated Glomerular Filt Rate > 60; Glucose Random 108 mg/dL (60-115); Potassium 3.8 mmol/L (3.3-5.1); Sodium 134 mmol/L (135-145); Total Protein 8.1 g/dL (6.5-8.0)
[2023-12-16 21:29] LABS: Troponin-I High Sensitivity < 2.7 ng/L (<3.5-17.0)
--- NOTE | 2023-12-17 00:41 | PC.NURSE ---
Pt states wait time too long, LWCT.
== END 2023-12-17 00:42 | disposition left against medical advice (07) ==
PROVIDERS: Physician Assistant Medical; Emergency Provider Emergency Medicine; PCP Internal Medicine
DX: R68.84 Jaw pain (principal); Z79.899 Other long term (current) drug therapy
CPT/HCPCS: 36415; 80048; 80076; 84484; 85025; 93005; 99283

== ENCOUNTER → 2023-12-16 20:37 | Outpatient (BNV) | payer OTHER, SELFPAY | PROVIDERS: Emergency Provider Emergency Medicine; PCP Internal Medicine; Visit Provider Internal Medicine Cardiovascular Disease | DX: G50.1 Atypical facial pain (principal) | CPT/HCPCS: 93010 ==

== ENCOUNTER 2023-12-22 11:07 | Outpatient (AMB) | payer MEDICARE, OTHER, SELFPAY ==
[2023-12-22 11:41] VITALS: BP 132/70; PULSE 74; O2SAT 99; BMI 25.6
--- NOTE | 2023-12-22 11:41 | A.OFFPC_ITS ---
Vital Signs 12/22/23 11:41 Height 4 ft 11 in Weight 127 lb BMI 25.6 BP 132/70 Blood Pressure Location Rt brachial Position Sitting Pulse 74 Pulse Source Pulse Oximeter Pulse Oximetry (%) 99 Oxygen Delivery Method Room Air Intake Visit Reasons: pain jaw line Intake Note: Pt is here today c/o jaw pain: She went to [facility] ER on 12/18 but left after waiting 3 hrs Allergies acetaminophen [Tylenol] Adverse Reaction (Unknown, Verified 12/25/23 21:08) stomach upset NSAIDS (Non-Steroidal Anti-Inflamma Adverse Reaction (Unknown, Verified 12/25/23 21:08) nausea and vomiting Medication List - Last Reconciled 12/25/23 by Dianne Vang MD amlodipine 10 mg PO DAILY lisinopril-hydrochlorothiazide 10-12.5 mg 1 tab PO DAILY naproxen (EC-Naproxen) 500 mg PO BID PRN Tobacco use date assessed: 12/22/23 Dental Screening Dental Screen Date: 12/22/23 Did you have a dental visit in the last 12 months?: No Was dental information given to patient?: Yes HPI pain jaw line HPI Details 63-year-old lady with history of hyperte nsion, here today complaining of intermittent pain over right temporal area, just in front of the ear. This has been on going now for the last several days. Comes and goes, worse when chewing on the right side. Denies any pain on tooth., no accompanying fever, no mouth sores, no ear pain or discharge [facility] Medical History (Updated 12/22/23 @ 12:04 by Dianne Vang MD) Temporomandibular joint pain-dysfunction syndrome Osteopenia of left femoral neck Heartburn Breast cancer screening by mammogram Difficulty sleeping Obesity Post menopausal syndrome Essential hypertension Glaucoma Dyslipidemia Surgical History History of knee surgery History of root canal procedure Family History Father Unknown family medical history Mother No problems noted. Social History Housing: Condominium Alcohol intake: never Patient Tobacco Use Status: Never used Tobacco e-Cigarette/Vaping Use: Never Used Second Hand Smoke Exposure: No Substance Use Type: Marijuana service: No Current occupational status: retired Cognitive needs: No Hearing needs: No Vision needs: Yes Questionnaire Thrive Questionnaire Date Thrive assessed: 11/01/23 AVELINA-7 AMB Questionnaire AVELINA-7 Date AVELINA - 7 assessed: 11/01/23 Source: Developed by Drs. Sammy Mckeon, Moon Machado, Mario Ramon and colleagues, with an educational bibiana from [employer]. Review of Systems Eyes Reports requires corrective lenses (For reading) ENT Reports no additional complaints and Reports as per HPI Card Denies chest pain, Denies lightheadedness and Denies dyspnea Resp Denies cough and Denies dyspnea GI Denies abdominal pain, Denies melena, Denies bloating, Denies change in bowel habits and Denies heartburn Reports no additional complaints Musc Reports no additional complaints Skin/Breast Denies lesions and Denies rash Neuro Denies Sensory deficit (Neuro) Psych Reports no additional complaints Harsha/Lymph Reports no additional complaints Aller/Immun Reports no additional complaints Physical exam (Primary Care) Vital Signs: Last Vital Signs Pulse 74 12/22/23 11:41 BP 132/70 12/22/23 11:41 Pulse Ox 99 12/22/23 11:41 Oxygen Delivery Method Room Air 12/22/23 11:41 BMI result Body Mass Index 25.6 Tobacco/Smoking Status: Tobacco use Status Tobacco use date assessed 12/22/23 12/22/23 11:51 Patient Tobacco Use Status Never used Tobacco 12/22/23 11:42 e-Cigarette/Vaping Use Never Used 12/22/23 11:42 Thrive Assessment: Date of Thrive Assessment Date Thrive assessed 11/01/23 12/22/23 11:42 Const Other: Alert oriented x3, no acute distress noted ambulatory normal gait HENMT Other: Tenderness on palpation over right temporomandibular joint area, no gross bone deformity or swelling Head: Yes normocephalic Ears: external ears normal, TM's normal bilaterally and EAC's normal General nose exam: Normal external nose present Face and sinus: Yes face symmetric Mouth: Normal oral and palatal mucosa present, oropharynx normal and moist mucous membranes Neck Other: Supple no lymphadenopathy, thyroid gland nonpalpable Resp Effort & Inspection: normal respiratory effort and able to speak in complete sentences Auscultation: clear to auscultation bilaterally Cardio Rate: regular rate Rhythm: regular rhythm Heart sounds: S1 normal heart sound present and S2 normal heart sound present GI Other: Obese, soft, nontender, no mass palpated Auscultation: normal bowel sounds Skin General skin exam: no rashes or lesions noted Neuro General: gait normal, moves all extremities, no focal motor deficits and CN's II-XI intact bilaterally Sensory Exam: No Sensory deficit (Neuro) Assessment and Plan Assessment & Plan (1) Temporomandibular joint pain-dysfunction syndrome: Code(s): M26.629 - Arthralgia of temporomandibular joint, unspecified side Plan: Patient advised to eat soft foods. Apply heat or cold to the face in combination with exercises to gently stretch and strengthen the jaw muscles. Take [id number] medications, prescription sent for naproxen 500 mg to take 1 tablet twice a day as needed for pain. Advised to take it always with a meal, another option is to try massaging diclofenac gel to affected area 3 to 4 times a day as needed. Do not combine with naproxen when using diclofenac gel.. Reduce habits such as jaw clenching, gum chewing, or nail biting. (2) Essential hypertension: Code(s): I10 - Essential (primary) hypertension Plan: Blood pressure at goal of less than 130/80. Continue with current medication. Reinforced importance of following a low sodium diet, getting regular exercise, and lowering stress levels. Medications: New naproxen (EC-Naproxen) 500 mg PO BID PRN 30 tabs 0RF pain M26.629 - Arthralgia of temporomandibular joint, unspecified side Coding Level of Care Code Est Pt Level 4 (22800) Complex EM visit Add On G2211 Diagnoses Temporomandibular joint pain-dysfunction syndrome M26.629 Essential hypertension I10
== END 2023-12-22 14:01 | disposition home or self-care (01) ==
PROVIDERS: PCP Internal Medicine; Visit Provider Internal Medicine
DX: M26.629 Arthralgia of temporomandibular joint, unspecified side (principal); I10 Essential (primary) hypertension
CPT/HCPCS: 99214; G2211

== ENCOUNTER 2024-02-02 08:24 | Outpatient (REF) | payer MEDICARE, SELFPAY ==
[2024-02-07 15:04] LABS: HPV mRNA E6/E7 Not Detected (Not Detected)
[2024-02-08 11:54] LABS: HPV 16 RNA TNPT
== END 2024-02-02 08:25 | disposition home or self-care (01) ==
LOC: HO.LNP 08:24
PROVIDERS: PCP Internal Medicine; Visit Provider Advanced Practice Midwife
DX: Z01.419 Encounter for gynecological examination (general) (routine) without abnormal findings (principal); Z11.51 Encounter for screening for human papillomavirus (HPV)
CPT/HCPCS: 87624; 88175

== ENCOUNTER 2024-02-02 08:24 | Outpatient (AMB) | payer MEDICARE, SELFPAY ==
--- NOTE | 2024-02-02 08:25 | A.OFFVIS_ITS ---
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 She is doing well with no concerns. Attempting to eat a healthy diet, and stays active with exercise-walking. Currently not sexually active, with her . Admits to vaginal dryness. STI testing offered; she declines. Last pap smear; 2013. Last mammogram; 2023. Cologard 2023. Denies any family history of breast, ovarian or colon cancer. [facility] Medical History Temporomandibular joint pain-dysfunction syndrome Osteopenia of left femoral neck Heartburn Breast cancer screening by mammogram Difficulty sleeping Obesity Post menopausal syndrome Essential hypertension Glaucoma Dyslipidemia Surgical History History of knee surgery History of root canal procedure Family History Father Unknown family medical history Mother No problems noted. Social History (Updated 02/02/24 @ 08:37 by NOEL Mello) Housing: Condominium Alcohol intake: never Patient Tobacco Use Status: Never used Tobacco e-Cigarette/Vaping Use: Never Used Second Hand Smoke Exposure: No Substance Use Type: Marijuana service: No Current occupational status: retired Sexually active: No Cognitive needs: No Hearing needs: No Vision needs: Yes Female Reproductive History Menstrual Menopause type: natural Age of menopause: 59 Total pregnancies: 1 Ab induced: 1 Date of last pap smear: 06/11/14 (neg) Date of Mammogram: 11/26/23 (Birad 2) Date of last Bone Density Screenin12/09/23 Other: Cologard [id number] Review of Systems Const All systems reviewed & are unremarkable except as noted in HPI and below Reports as per HPI Eyes Reports no additional complaints ENT Reports no additional complaints Card Reports no additional complaints Resp Reports no additional complaints GI Reports as per HPI and Reports no additional complaints Reports as per HPI Musc Reports no additional complaints Skin/Breast Reports as per HPI Neuro Reports no additional complaints Psych Reports no additional complaints Endo Reports no additional complaints Harsha/Lymph Reports no additional complaints Aller/Immun Reports no additional complaints Physical Exam Vital Signs: Last Vital Signs BP 100/60 02/02/24 08:36 BMI result Body Mass Index 25.0 Const General: cooperative, healthy appearing, no acute distress, well developed and alert Orientation/consciousness: patient oriented x3 HEENT Head: Yes normal to inspection Eyes General: appearance normal, both eyes and all related structures Neck Neck: Yes normal visual inspection Thyroid: Thyroid normal Chest Chest palpation & inspection: normal inspection of the chest and other (no puckering, dimpling, peau de orange, retraction, discharge, masses) Breast/axilla inspection: normal inspection of the breasts Breast/axilla palpation: normal palpation of the breasts Resp Effort & Inspection: normal respiratory effort GI Inspection: Yes normal to inspection Palpation (GI): Soft to palpation Rectal Exam - Female: deferred General: Yes bladder normal to palpation External Female Exam: normal external appearance and normal appearance of the urethra Speculum Exam - Vagina: normal appearance of the vagina, normal palpation, normal vaginal discharge and vagina atrophic (Significant atrophic changes, smallest Lizbeth used) Speculum Exam - Cervix: normal appearance of the cervix and normal palpation Bimanual exam- vagina & uterus: normal bimanual exam, normal palpation, uterine size normal, bladder normal to palpation, normal palpation and non-tender Bimanual Exam- Adnexa, other: no masses Skin General skin exam: no rashes or lesions noted Rashes: no rashes Neuro General: patient oriented x3 Cognition (Neuro): normal cognition Extrem General: Yes normal to inspection Psych Attitude: cooperative Thought process: Normal thought process present Assessment & Plan Assessment & Plan (1) Encounter for well woman exam with routine gynecological exam: Code(s): Z01.419 - Encounter for gynecological examination (general) (routine) without abnormal findings Category: Medical (2) Vaginal dryness: Code(s): N89.8 - Other specified noninflammatory disorders of vagina Plan Discussed: Current recommendations for pap smears per ASCCP guidelines. Pap obtained. Breast awareness, periodic self breast exams and yearly mammogram. Maintain a healthy lifestyle, well balanced diet including Calcium 1,200 mg and Vitamin D 600 IU daily, and routine exercise. Calcium handout dispensed. Topical vulvar ointment-in example Vaseline, and other products. Not interested in intravaginal used products. Contact the office with any postmenopausal bleeding. Patient verbalizes understanding and agrees to the plan of care. She was given opportunity to ask questions and all questions were answered to the best of my ability. RTO in 1 year for annual sas administrator exam. This note is constructed using voice recognition software. While every effort has been made to ensure accuracy, cat breeder errors may have been included. Orders: Orders PAP + HPV E6/E7 rfx 18/45 Today Z01.419 - Encounter for gynecological examination (general) (routine) without abnormal findings Coding Level of Care Code New Pt Prev Care >65yr (15127) Diagnoses Encounter for well woman exam with routine gynecological exam Z01.419 Vaginal dryness N89.8
[2024-02-02 08:36] VITALS: BP 100/60; BMI 25.0
== END 2024-02-02 09:14 | disposition home or self-care (01) ==
PROVIDERS: PCP Internal Medicine; Visit Provider Advanced Practice Midwife
DX: Z01.419 Encounter for gynecological examination (general) (routine) without abnormal findings (principal); N89.8 Other specified noninflammatory disorders of vagina
CPT/HCPCS: 99387

== ENCOUNTER 2024-05-11 06:19 | Outpatient (REF) | payer MEDICARE, SELFPAY ==
[2024-05-11 10:38] LABS: Alanine Aminotransferase 16 U/L (0-31); Anion Gap 12 (12-20); Aspartate Amino Transferase 22 U/L (5-31); Blood Urea Nitrogen 13 mg/dL (9-16); Calcium 9.5 mg/dL (8.4-10.2); Carbon Dioxide 24 mmol/L (22-29); Chloride 102 mmol/L (96-108); Cholesterol 180 mg/dL (<200); Estimated Glomerular Filt Rate > 60; Glucose Fasting 94 mg/dL (60-99); HDL Cholesterol 35 mg/dL (>40); LDL Cholesterol Calculated 126 mg/dL (<100); Potassium 3.7 mmol/L (3.3-5.1); Sodium 134 mmol/L (135-145); Triglycerides 96 mg/dL (<150); Vitamin D 25-OH Total 23.4 ng/mL (>30)
== END 2024-05-11 06:20 | disposition home or self-care (01) ==
LOC: HO.HMGCLDS 06:19
PROVIDERS: PCP Internal Medicine; Visit Provider Internal Medicine
DX: I10 Essential (primary) hypertension (principal); M85.852 Other specified disorders of bone density and structure, left thigh; Z13.220 Encounter for screening for lipoid disorders; Z78.0 Asymptomatic menopausal state
CPT/HCPCS: 36415; 80048; 80061; 82306; 84450; 84460

== ENCOUNTER 2024-05-12 08:50 | Outpatient (AMB) | payer MEDICARE, SELFPAY ==
--- NOTE | 2024-05-12 08:47 | A.OFFPC_ITS ---
Intake Visit Reasons: 6 month follow up Intake Note: Pt is having a TH visit for her 6mo. f/u labs Allergies acetaminophen [Tylenol] Adverse Reaction (Unknown, Verified 05/12/24 09:23) stomach upset NSAIDS (Non-Steroidal Anti-Inflamma Adverse Reaction (Unknown, Verified 05/12/24 09:23) nausea and vomiting Medication List - Last Reconciled 05/12/24 by Dianne Vang MD amlodipine 10 mg PO DAILY lisinopril-hydrochlorothiazide 10-12.5 mg 1 tab PO DAILY naproxen (EC-Naproxen) 500 mg PO BID PRN Tobacco use date assessed: 05/12/24 Fall risk assessment: No Falls in past year Last assessed Fall Risk: 05/12/24 Dental Screening Dental Screen Date: 05/12/24 Did you have a dental visit in the last 12 months?: No Did you have a dental problem in the last 6 months where you did not have access to dental care?: No Was dental information given to patient?: No HPI 6 month follow up HPI Details Telehealth visit made with 64-year-old female presenting for a follow- up for hypertension management and a review of recent blood work results. She reports maintaining her current regimen of two antihypertensive medications, including amlodipine 10 mg at night and a lisinopril-hydrochlorothiazide combination 10-12.5 mg in the morning. She notes her blood pressure has been stable and denies recent headaches, which were previously attributed to elevated blood pressure. The patient mentions a conscious effort to reduce dietary salt intake. Her current blood work shows a sodium level slightly below normal at 134 mmol/L, but she has not altered her diet excessively in response. Previously, she has used naproxen sparingly for headaches and mild pain, but has not needed it recently. Her lipid panel is notable for low HDL cholesterol at 35 mg/dL, below the desired level of 40 mg/dL, with other lipids within normal limits. Additionally, her vitamin D level is low at 23 ng/mL, and she has discontinued previous vitamin D supplementation due to constipation. She is advised to separate vitamin D from calcium supplements to mitigate this issue. [facility] Medical History Temporomandibular joint pain-dysfunction syndrome Osteopenia of left femoral neck Heartburn Breast cancer screening by mammogram Difficulty sleeping Obesity Post menopausal syndrome Essential hypertension Glaucoma Dyslipidemia Surgical History History of knee surgery History of root canal procedure Family History Father Unknown family medical history Mother No problems noted. Social History Housing: Condominium Alcohol intake: never Patient Tobacco Use Status: Never used Tobacco e-Cigarette/Vaping Use: Never Used Second Hand Smoke Exposure: No Substance Use Type: Marijuana service: No Current occupational status: retired Cognitive needs: No Hearing needs: No Vision needs: Yes Questionnaire Thrive Questionnaire Date Thrive assessed: 11/01/23 AVELINA-7 AMB Questionnaire AVELINA-7 Date AVELINA - 7 assessed: 11/01/23 Source: Developed by Drs. Sammy Mckeon, Moon Machado, Mario Ramon and colleagues, with an educational bibiana from [employer]. Review of Systems Const Reports no additional complaints Eyes Reports no additional complaints ENT Reports no additional complaints Card Reports no additional complaints Resp Reports no additional complaints GI Reports no additional complaints Musc Reports no additional complaints Skin/Breast Reports as per HPI Neuro Reports no additional complaints Psych Reports no additional complaints Endo Reports no additional complaints Harsha/Lymph Reports no additional complaints Aller/Immun Reports no additional complaints Physical exam (Primary Care) Tobacco/Smoking Status: Tobacco use Status Tobacco use date assessed 05/12/24 05/12/24 08:49 Patient Tobacco Use Status Never used Tobacco 05/12/24 08:49 e-Cigarette/Vaping Use Never Used 05/12/24 08:49 Thrive Assessment: Date of Thrive Assessment Date Thrive assessed 11/01/23 05/12/24 08:49 Telehealth Telehealth Telehealth Platform: [facility] Location of provider rendering services: practice address Location of patient: address on file Patient Identification confirmed using: Name, : Yes Telehealth method: video Patient verbally consented to treatment: Yes Patient verbally consented to billing insurance company: Yes Patient informed of any privacy concerns related to visit: Yes Minutes spent on Phone/Video with Pt.: 15 Results Reviewed Results Reviewed: Name: Jennifer Camargo Age/Sex: 64/F : 1960 Unit#: [id number] Attend Dr: Dianne Vang MD Re05/11/24 Status: DEP REF Location: [facility] Disch: SPEC : [id number] FARZANA: 05/11/24 STATUS: COMP REQ : [id number] RECD: 05/11/[address]: Dianne Vang MD COMP: 05/11/24 ENTERED: 05/11/[address] [facility] DR: ORDERED: Met Prof Fast, AST, ALT, Lipid Panel, Vitamin D 25-OH Test Result Flag Reference Sodium 134 L 135-145 mmol/L Potassium 3.7 3.3-5.1 mmol/L CL 102 96-108 mmol/L CO2 24 22-29 mmol/L Gap 12 12-20 BUN 13 9-16 mg/dL Creat 0.67 0.5-1.4 mg/dL eGFR > 60 Chronic Kidney Disease: Estimated GFR < 60 mL/min/1.73m2 Severe Kidney Disease: Estimated GFR < 15 mL/min/1.73m2 FBS 94 60-99 mg/dL CA 9.5 8.4-10.2 mg/dL AST (GOT) 22 5-31 U/L ALT (GPT) 16 0-31 U/L Triglyceride 96 <150 mg/dL Desirable Triglyceride: less than 150 mg/dL Borderline High Triglyceride 150-199 mg/dL High Triglyceride: 200-499 mg/dL Very High Triglyceride: greater than or equal to 5OO mg/dL Cholesterol 180 <200 mg/dL Desirable Cholesterol: less than 200 mg/dL Borderline High Cholesterol: 200-239 mg/dL High Cholesterol: greater than 239 mg/dL LDL Calculated 126 H <100 mg/dL Desirable LDL: less than 100 mg/dL Near Optimal/Above Optimal LDL: 110-129 mg/dL Borderline High LDL: 130-159 mg/dL High LDL: 160-189 mg/dL Very High LDL: greater than or equal to 190 mg/dL HDL 35 L >40 mg/dL Desirable HDL: greater than 40 mg/dL Note: This HDL assay may give artificially low results in patients with liver disease. Vit D 25-OH Tot 23.4 L >30 ng/mL Health Based Reference Values* < 20 ng/mL Deficient 20-30 ng/mL Insufficient > 30 ng/mL Sufficient Coding Level of Care Code Tele Est Pt Level 4 (17424) Diagnoses Essential hypertension I10 Assessment & Plan Assessment & Plan (1) Essential hypertension: Code(s): I10 - Essential (primary) hypertension Category: Medical Plan I discussed the patient's current status of hypertension, emphasizing the importance of regular blood pressure monitoring at home, as we do not plan to make changes to her medication regimen at this time. We reviewed her blood work results, highlighting low HDL cholesterol and vitamin D levels. Strategies to increase HDL through regular exercise were discussed, noting the benefit of elevated exercise levels on cholesterol. We talked about continued dietary management focusing on maintaining a low-salt diet. I advised restarting vitamin D supplementation at a dose of 2000 IU daily, it from calcium intake, and its role in maintaining bone health and overall well-being. 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 I also emphasized the importance of receiving a high-dose flu shot suitable for seniors and a COVID booster in the future. Medications: Refilled lisinopril-hydrochlorothiazide 10-12.5 mg 1 tab PO DAILY 90 tabs 3RF amlodipine Take at night with supper 10 mg PO DAILY 90 tabs 3RF
== END 2024-05-12 10:22 | disposition home or self-care (01) ==
LOC: HO.HMCC 08:50
PROVIDERS: PCP Internal Medicine; Visit Provider Internal Medicine
DX: I10 Essential (primary) hypertension (principal)

== ENCOUNTER → 2024-05-12 08:50 | Outpatient (BNVA) | payer MEDICARE, SELFPAY | PROVIDERS: PCP Internal Medicine; Visit Provider Internal Medicine ==

== ENCOUNTER 2025-01-01 08:39 | Outpatient (REF) | payer MEDICARE, SELFPAY | END 2025-01-01 08:40 | disposition home or self-care (01) | LOC: HO.MAMMO 08:39 | PROVIDERS: Visit Provider Internal Medicine | DX: Z12.31 Encounter for screening mammogram for malignant neoplasm of breast (principal) | CPT/HCPCS: 77063; 77067 ==

== ENCOUNTER → 2025-01-01 08:45 | Outpatient (BNV) | payer MEDICARE, SELFPAY | PROVIDERS: Visit Provider Internal Medicine | DX: Z12.31 Encounter for screening mammogram for malignant neoplasm of breast (principal) | CPT/HCPCS: 77063; 77067 ==

== ENCOUNTER 2025-02-05 09:40 | Outpatient (AMB) | payer MEDICARE, SELFPAY ==
--- NOTE | 2025-02-05 09:54 | MHC.PC.OV ---
Vital Signs 02/05/25 10:10 Height 4 ft 11 in Weight 125 lb BMI 25.2 BP 135/70 Blood Pressure Location Lt brachial Position Sitting Respiration 16 Pulse 73 Pulse Source Pulse Oximeter Pulse Oximetry (%) 96 Oxygen Delivery Method Room Air Intake Visit Reasons: PE Intake Note: Pt is here today for her PE: last mammogram 01/01/25, bone density scan 12/09/23, cologuard 12/15/23, pap smear 02/02/24 Allergies acetaminophen (Tylenol) Adverse Reaction (Unknown, Verified 02/09/25 16:24) stomach upset NSAIDS (Non-Steroidal Anti-Inflamma Adverse Reaction (Unknown, Verified 02/09/25 16:24) nausea and vomiting Medication List - Last Reconciled 02/05/25 by Dianne Vang MD amlodipine 10 mg PO DAILY lisinopril-hydrochlorothiazide 10-12.5 mg 1 tab PO DAILY naproxen (EC-Naproxen) 500 mg PO BID PRN Tobacco use date assessed: 02/05/25 Fall risk assessment: No Falls in past year Last assessed Fall Risk: 02/05/25 Dental Screening Dental Screen Date: 02/05/25 Did you have a dental visit in the last 12 months?: No Did you have a dental problem in the last 6 months where you did not have access to dental care?: No Was dental information given to patient?: Patient has dentist HPI PE HPI Details 65-year-old lady with history of hypertension, TMJ dysfunction, osteopenia of left femoral neck and glaucoma, here today for her physical exam. Currently taking amlodipine 10 mg daily and lisinopril-HCTZ 10-12.5 mg in the morning for hypertension but blood pressure still not within normal limits, .occasionally forgets take her medication in the morning She is up-to-date with her screening mammogram, done several months ago with normal findings, and had a bone density scan done in 2023 which showed presence of osteopenia in left femur and left femoral neck, normal in lumbar spine. No history of fractures She goes to [facility] for routine Pap and pelvic exam, last done on 02/02/2024 showing[facility] , due for follow-up this year Had a negative Cologuard test done in 2023 - Glaucoma: Diagnosed by a specialist in [place], patient has had surgery and uses eye drops. Difficulty in scheduling follow-up appointments due to relocation of the specialist. - Vitamin D deficiency: Previously identified, patient reports constipation with supplements, considering weekly dosing if levels remain low. - Heartburn: Occurs postprandially, associated with dietary choices such as kimchi, no changes in management discussed. [facility] Medical History Temporomandibular joint pain-dysfunction syndrome Osteopenia of left femoral neck Heartburn Breast cancer screening by mammogram Difficulty sleeping Obesity Post menopausal syndrome Essential hypertension Glaucoma Dyslipidemia Surgical History History of knee surgery History of root canal procedure Family History Father Unknown family medical history Mother No problems noted. Social History Housing: Condominium Alcohol intake: never Patient Tobacco Use Status: Never used Tobacco e-Cigarette/Vaping Use: Never Used Second Hand Smoke Exposure: No Substance Use Type: Marijuana service: No Current occupational status: retired Cognitive needs: No Hearing needs: No Vision needs: Yes Female Reproductive History Menstrual Menopause type: natural Questionnaire PHQ-9 Over the last 2 weeks, how often have you been bothered by any of the following problems? 1. Little interest or pleasure in doing things: not at all 2. Feeling down, depressed, or hopeless: not at all 3. Trouble falling or staying asleep, or sleeping too much: nearly every day 4. Feeling tired or having little energy: not at all 5. Poor appetite or overeating: not at all 6. Feeling bad about yourself - or that you are a failure or have let yourself or your family down: not at all 7. Trouble concentrating on things, such as reading the newspaper or watching television: several days 8. Moving or speaking so slowly that other people could have noticed. Or the opposite - being so fidgety or restless that you have been moving around a lot more than usual: not at all 9. Thoughts that you would be better off or of hurting yourself in some way: not at all Total score: 4 Depression Screening Interpretation: Negative Depression Screening Done: Yes 35894 - PHQ-9 Billing: Yes Source: Developed by Drs. Sammy Mckeon, Moon Machado, Mario Ramon and colleagues, with an educational bibiana from [employer]. Thrive Questionnaire Date Thrive assessed: 01/30/25 I am a: Patient What is your living situation today?: I have a steady place to live Within the past 12 months, did the food you bought not last and you didn't have the money to get more?: Never true Within the past 12 months, did you worry whether your food would run out before you got money to buy more?: Never true Do you have trouble paying for medicines?: No Do you have trouble getting transportation to medical appointments?: No Do you have trouble paying your heating and electricity bill?: No Do you have trouble taking care of your child, family member or friend?: No Do you have trouble with day-to-day activities such as bathing, preparing meals, shopping, managing finances, etc.?: No Are you currently unemployed and looking for a job?: No Are you interested in more education?: No Please select the resources that you would like help with: None Currently or been in a relationship where the following occur: No concerns reported THRIVE Score: 0 AUDIT C Alcohol Use Questionnaire (AUDIT-C) 1. How often do you have a drink containing alcohol?: Never 2. How many drinks containing alcohol do you have on a typical day when you are drinking?: 1 or 2 3. How often do you have six or more drinks on one occasion?: Never Total Score: 0 Score Reviewed/Action Taken: Yes AVELINA-7 AMB Questionnaire AVELINA-7 Date AVELINA - 7 assessed: 02/05/25 Feeling nervous, anxious, or on edge: 0 = Not at all Not being able to stop or control worryin = Several days Worrying too much about different things: 1 = Several days Trouble relaxin = Not at all Being so restless that it is hard to sit still: 1 = Several days Becoming easily annoyed or irritable: 1 = Several days Feeling afraid as if something awful might happen: 0 = Not at all Total AVELINA-7 score (0-4 normal; 5-9 mild; 10-14 moderate; 15-21 severe): 4 Source: Developed by Drs. Sammy Mckeon, Moon Machado, Mario Ramon and colleagues, with an educational bibiana from [employer]. AVELINA-7 Assessment Billing AVELINA-7 Assessment Tool: AVELINA-7 Assessment 06301 Review of Systems Const Reports no additional complaints Eyes Reports no additional complaints ENT Reports no additional complaints Card Reports no additional complaints Resp Reports no additional complaints GI Reports no additional complaints Details: Goes to [facility] for her routine Pap pelvic exam currently up-to-date Reports no additional complaints Musc Reports no additional complaints Skin/Breast Denies breast pain, Denies breast mass, Denies lesions and Denies rash Neuro Reports no additional complaints and Denies Sensory deficit (Neuro) Psych Reports no additional complaints Endo Reports no additional complaints Harsha/Lymph Reports no additional complaints Aller/Immun Reports no additional complaints Physical exam (Primary Care) Vital Signs: Last Vital Signs Pulse 73 02/05/25 10:10 Resp 16 02/05/25 10:10 BP 135/70 02/05/25 10:10 Pulse Ox 96 02/05/25 10:10 Oxygen Delivery Method Room Air 02/05/25 10:10 BMI result Body Mass Index 25.2 Tobacco/Smoking Status: Tobacco use Status Tobacco use date assessed 02/05/25 02/05/25 10:00 Patient Tobacco Use Status Never used Tobacco 02/05/25 10:00 e-Cigarette/Vaping Use Never Used 02/05/25 10:00 PHQ-9: PHQ-9 Score PHQ-9: Total score 4 02/05/25 10:41 Depression Screening Interpretation: Negative Thrive Assessment: Date of Thrive Assessment Date Thrive assessed 01/30/25 02/05/25 10:00 Currently or been in a relationship where the following occur: No concerns reported Advance Care Planning discussion: Completed/Scanned Date of discussion: 02/05/25 Who was present: Patient Forms completed: MOLST Time spent: 16-45 minutes Actual minutes spent: 3 Const Other: Alert oriented x3, no acute distress noted ambulatory normal gait HENMT Head: Yes normocephalic Ears: external ears normal, TM's normal bilaterally and EAC's normal General nose exam: Normal external nose present Face and sinus: Yes face symmetric Mouth: Normal oral and palatal mucosa present and moist mucous membranes Neck Other: Supple no lymphadenopathy, thyroid gland nonpalpable Chest Breast/axilla inspection: normal inspection of the breasts Breast/axilla palpation: normal palpation of the breasts Resp Effort & Inspection: normal respiratory effort and able to speak in complete sentences Auscultation: clear to auscultation bilaterally Cardio Rate: regular rate Rhythm: regular rhythm Heart sounds: S1 normal heart sound present and S2 normal heart sound present GI Other: Obese, soft, nontender, no mass palpated Auscultation: normal bowel sounds General: Yes no CVA tenderness and Yes deferred (Goes to [facility]) Back/Spine/Pelvis Back: no CVA tenderness and No back tenderness Skin General skin exam: no rashes or lesions noted Neuro General: gait normal, moves all extremities, no focal motor deficits and CN's II-XI intact bilaterally Sensory Exam: No Sensory deficit (Neuro) Extrem General: Yes full ROM, Yes no joint enlargement, Yes no pedal edema, Yes no calf tenderness and Yes normal gait Psych Appearance: grossly normal and well kempt Mental Status: mental status grossly normal Speech and movement: Normal speech and movement present Affect: normal affect Coding Level of Care Code Est Pt Prev Care >65y(10496) Diagnoses Annual visit for general adult medical examination with abnormal findings Z00. Glaucoma, unspecified glaucoma type, unspecified laterality H40.9 Glaucoma type: unspecified Laterality: unspecified laterality Osteopenia of left femoral neck M85.852 Essential hypertension I10 Atypical squamous cells of undetermined significance (ASC-US) on cervical Pap smear R87.610 Advance directive discussed with patient Z71.89 Additional Codes AVELINA-7 Assessment Billing - AVELINA-7 Assessment Tool: AVELINA-7 Assessment 12937 ([id number]) PHQ-9 - 69933 - PHQ-9 Billing: Yes ([id number]) Vital Signs *Quality* - Advance Care Planning discussion: Completed/Scanned ([id number]) Vital Signs *Quality* - Time spent: 16-45 minutes ([id number]) Assessment & Plan Assessment & Plan (1) Annual visit for general adult medical examination with abnormal findings: Code(s): Z00.01 - Encounter for general adult medical examination with abnormal findings (2) Glaucoma: Code(s): H40.9 - Unspecified glaucoma Category: Medical Qualifiers: Glaucoma type: unspecified Laterality: unspecified laterality Qualified Code(s): H40.9 - Unspecified glaucoma (3) Osteopenia of left femoral neck: Code(s): M85.852 - Other specified disorders of bone density and structure, left thigh Category: Medical (4) Essential hypertension: Code(s): I10 - Essential (primary) hypertension Category: Medical (5) Atypical squamous cells of undetermined significance (ASC-US) on cervical Pap smear: Comment: 2023, Repeat Pap in 3 years-2026... Code(s): R87.610 - Atypical squamous cells of undetermined significance on cytologic smear of cervix (ASC-US) Category: Medical Plan: Has an appointment with Cate Mcginnis 02/06/2025 at 09:00 (6) Advance directive discussed with patient: Code(s): Z71.89 - Other specified counseling Plan: Initiated the conversation about Advanced Directives. Advanced Directives help patients prepare for current and future decisions about their medical treatment and place of care. Discussed with patient that it is a process where a patients current condition and prognosis are reviewed, their wishes for information regarding their illness are elicited, and likely medical dilemmas are presented and options discussed. MOLST form completed today. Already did her healthcare proxy last year. These forms can be amended as needed, reviewed yearly and make changes as needed Plan The patient will continue to manage glaucoma with eye drops and is advised to schedule a follow-up with a affiliate marketing specialist, preferably Dr. Luevano, to ensure proper monitoring and management of the condition. For hypertension, the patient is reminded to adhere to the prescribed medication regimen, including amlodipine and lisinopril, and to monitor blood pressure regularly. Dietary modifications to reduce salt intake are recommended to aid in blood pressure control. Vitamin D deficiency will be addressed by checking current levels and considering weekly supplementation if levels remain low. The patient is advised to take vitamin D3 separately from calcium to avoid constipation. Heartburn management will focus on dietary modifications, particularly reducing intake of spicy and pickled foods like kimchi, which may exacerbate symptoms. Continue on current dose of amlodipine and lisinopril HCTZ and reminded to take medications regularly. Osteopenia will be monitored with a repeat bone density scan next year to assess progression and guide further management. The patient is scheduled for a follow-up appointment with a head of talent management to address the abnormal Pap smear findings from last year. Regular screenings, including mammograms and Cologuard tests, are planned as part of preventative care. Patient was informed and verbally consented to the use of an ambient scribe for clinic note documentation during this visit. Orders: Orders Aspartate Amino Transferase 02/05/25 H40.9 - Unspecified glaucoma, I10 - Essential (primary) hypertension, M85.852 - Other specified disorders of bone density and structure, left thigh, R87.610 - Atypical squamous cells of undetermined significance on cytologic smear of cervix (ASC-US) Lipid Panel 02/05/25 H40.9 - Unspecified glaucoma, I10 - Essential (primary) hypertension, M85.852 - Other specified disorders of bone density and structure, left thigh, R87.610 - Atypical squamous cells of undetermined significance on cytologic smear of cervix (ASC-US) Basic Metabolic Panel Fasting 02/05/25 H40.9 - Unspecified glaucoma, I10 - Essential (primary) hypertension, M85.852 - Other specified disorders of bone density and structure, left thigh, R87.610 - Atypical squamous cells of undetermined significance on cytologic smear of cervix (ASC-US) Alanine Aminotransferase 02/05/25 H40.9 - Unspecified glaucoma, I10 - Essential (primary) hypertension, M85.852 - Other specified disorders of bone density and structure, left thigh, R87.610 - Atypical squamous cells of undetermined significance on cytologic smear of cervix (ASC-US) Vitamin D 25-OH Total 02/05/25 H40.9 - Unspecified glaucoma, I10 - Essential (primary) hypertension, M85.852 - Other specified disorders of bone density and structure, left thigh, R87.610 - Atypical squamous cells of undetermined significance on cytologic smear of cervix (ASC-US) Referrals Ophthalmology Referral H40.9 - Unspecified glaucoma
[2025-02-05 10:10] VITALS: BP 135/70; PULSE 73; RESP 16; O2SAT 96; BMI 25.2
== END 2025-02-05 10:48 | disposition home or self-care (01) ==
LOC: HO.HMCC 09:41
PROVIDERS: PCP Internal Medicine; Visit Provider Internal Medicine
DX: Z00.00 Encounter for general adult medical examination without abnormal findings (principal); H40.9 Unspecified glaucoma; M85.852 Other specified disorders of bone density and structure, left thigh; I10 Essential (primary) hypertension; R87.610 Atypical squamous cells of undetermined significance on cytologic smear of cervix (ASC-US); Z71.89 Other specified counseling

== ENCOUNTER → 2025-02-05 09:40 | Outpatient (BNVA) | payer MEDICARE, SELFPAY | PROVIDERS: PCP Internal Medicine; Visit Provider Internal Medicine | DX: Z00.01 Encounter for general adult medical examination with abnormal findings (principal); I10 Essential (primary) hypertension; H40.9 Unspecified glaucoma; M85.852 Other specified disorders of bone density and structure, left thigh; R87.610 Atypical squamous cells of undetermined significance on cytologic smear of cervix (ASC-US); Z71.89 Other specified counseling | CPT/HCPCS: 96127; 99397 ==

== ENCOUNTER 2025-02-06 08:52 | Outpatient (AMB) | payer MEDICARE, SELFPAY ==
--- NOTE | 2025-02-06 08:54 | MHC.OFFVIS ---
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 Currently not sexually active w/. STI testing offered; she declined. Attempting to eat a healthy diet with calcium and vitamin D and stays active with exercise. Last pap smear; 2023, ASCUS. Last mammogram; 2024. [facility] is UTD. [facility] Medical History Temporomandibular joint pain-dysfunction syndrome Osteopenia of left femoral neck Heartburn Breast cancer screening by mammogram Difficulty sleeping Obesity Post menopausal syndrome Essential hypertension Glaucoma Dyslipidemia Surgical History History of knee surgery History of root canal procedure Family History Father Unknown family medical history Mother No problems noted. Social History Housing: Condominium Alcohol intake: never Patient Tobacco Use Status: Never used Tobacco e-Cigarette/Vaping Use: Never Used Second Hand Smoke Exposure: No Substance Use Type: Marijuana service: No Current occupational status: retired Cognitive needs: No Hearing needs: No Vision needs: Yes Female Reproductive History Menstrual Total pregnancies: 1 Number of Living Children: 0 Ab induced: 1 Date of last pap smear: 02/02/24 ([place]) History of abnormal pap smear: Yes Date of Mammogram: 01/01/25 ([facility] 2) Date of last Bone Density Screenin12/09/23 Review of Systems Const All systems reviewed & are unremarkable except as noted in HPI and below Reports as per HPI Eyes Reports no additional complaints ENT Reports no additional complaints Card Reports no additional complaints Resp Reports no additional complaints GI Reports as per HPI and Reports no additional complaints Reports as per HPI Musc Reports no additional complaints Skin/Breast Reports as per HPI Neuro Reports no additional complaints Psych Reports no additional complaints Endo Reports no additional complaints Harsha/Lymph Reports no additional complaints Aller/Immun Reports no additional complaints Physical Exam Vital Signs: Last Vital Signs BP 120/70 02/06/25 08:56 BMI result Body Mass Index 25.2 Const General: cooperative, healthy appearing, no acute distress, well developed and alert Orientation/consciousness: patient oriented x3 HEENT Head: Yes normal to inspection Eyes General: appearance normal, both eyes and all related structures Neck Neck: Yes normal visual inspection Thyroid: Thyroid normal Chest Chest palpation & inspection: normal inspection of the chest and other (no puckering, dimpling, peau de orange, retraction, discharge, masses) Breast/axilla inspection: normal inspection of the breasts Breast/axilla palpation: normal palpation of the breasts Resp Effort & Inspection: normal respiratory effort GI Inspection: Yes normal to inspection Palpation (GI): Soft to palpation Rectal Exam - Female: deferred General: Yes bladder normal to palpation External Female Exam: normal external appearance and normal appearance of the urethra Speculum Exam - Vagina: normal appearance of the vagina, normal palpation, normal vaginal discharge and vagina atrophic Speculum Exam - Cervix: normal appearance of the cervix and normal palpation Bimanual exam- vagina & uterus: normal bimanual exam, normal palpation, uterine size normal, bladder normal to palpation, normal palpation and non-tender Bimanual Exam- Adnexa, other: no masses Skin General skin exam: no rashes or lesions noted Rashes: no rashes Neuro General: patient oriented x3 Cognition (Neuro): normal cognition Extrem General: Yes normal to inspection Psych Attitude: cooperative Thought process: Normal thought process present Assessment & Plan Assessment & Plan (1) Encounter for well woman exam with routine gynecological exam: Code(s): Z01.419 - Encounter for gynecological examination (general) (routine) without abnormal findings Category: Medical Plan Current recommendations for pap smears per ASCCP guidelines. Repeat Pap in 2026. Breast awareness, periodic self breast exams and yearly mammogram. Maintain a healthy lifestyle, well balanced diet including Calcium 1,200 mg and Vitamin D 600 IU daily, and routine exercise. Vulva care [id number] self-help vulvar balms, versus topical estrogen cream. Aging skin care changes and concerns. Contact the office with any postmenopausal bleeding. Patient verbalizes understanding and agrees to the plan of care. She was given opportunity to ask questions and all questions were answered to the best of my ability. RTO in 1 year for annual electrical research engineer exam. This note is constructed using voice recognition software. While every effort has been made to ensure accuracy, item repair manager errors may have been included. Coding Level of Care Code Est Pt Prev Care >65y(71372) Diagnoses Encounter for well woman exam with routine gynecological exam Z01.419
[2025-02-06 08:56] VITALS: BP 120/70; BMI 25.2
== END 2025-02-06 10:22 | disposition home or self-care (01) ==
LOC: HO.HWS 08:52
PROVIDERS: PCP Internal Medicine; Visit Provider Advanced Practice Midwife
DX: Z01.419 Encounter for gynecological examination (general) (routine) without abnormal findings (principal)
CPT/HCPCS: 99397; 99459

== ENCOUNTER → 2025-02-06 08:52 | Outpatient (BNVA) | payer MEDICARE, SELFPAY | PROVIDERS: PCP Internal Medicine; Visit Provider Advanced Practice Midwife | DX: Z01.419 Encounter for gynecological examination (general) (routine) without abnormal findings (principal) | CPT/HCPCS: 99397 ==

== ENCOUNTER 2025-05-31 10:26 | Outpatient (REF) | payer MEDICARE, SELFPAY ==
[2025-05-31 14:54] LABS: Alanine Aminotransferase 19 U/L (0-31); Anion Gap 9 (12-20); Aspartate Amino Transferase 18 U/L (5-31); Blood Urea Nitrogen 12 mg/dL (9-16); Calcium 9.2 mg/dL (8.4-10.2); Carbon Dioxide 25 mmol/L (22-29); Chloride 110 mmol/L (96-108); Estimated Glomerular Filt Rate > 60; Potassium 3.7 mmol/L (3.3-5.1); Sodium 140 mmol/L (135-145)
== END 2025-05-31 10:27 | disposition home or self-care (01) ==
LOC: HO.HMGCLDS 10:26
PROVIDERS: Absent Provider Internal Medicine; PCP Internal Medicine
DX: I10 Essential (primary) hypertension (principal); M85.852 Other specified disorders of bone density and structure, left thigh; H40.9 Unspecified glaucoma; R87.610 Atypical squamous cells of undetermined significance on cytologic smear of cervix (ASC-US)
CPT/HCPCS: 36415; 80048; 82306; 84450; 84460; 99211